=== PATIENT | female | born 1975 | race Caucasian/White ===

== ENCOUNTER → 2017-07-11 | Outpatient (REF) | payer OTHER | LOC: M SFHCPLAZ 19:18 | DX: Z12.4 Encounter for screening for malignant neoplasm of cervix (principal); R87.615 Unsatisfactory cytologic smear of cervix | CPT/HCPCS: 88142 ==

== ENCOUNTER → 2017-07-11 | Outpatient (REF) | payer OTHER ==
[2017-07-11 14:30] LABS: ALBUMIN 3.9 GM/DL (3.2-5.2); ALBUMIN/GLOBULIN RATIO 1.26 (1.00-1.93); ALKALINE PHOSPHATASE 57 U/L (45-117); ALT/SGPT 22 U/L (12-78); ANION GAP 8 MEQ/L (8-16); AST/SGOT 20 U/L (7-37); BILIRUBIN,TOTAL 1.1 MG/DL (0.2-1.0); BLOOD UREA NITROGEN 17 MG/DL (7-18); CALCIUM LEVEL 8.8 MG/DL (8.5-10.1); CARBON DIOXIDE LEVEL 27 MEQ/L (21-32); CHLORIDE LEVEL 106 MEQ/L (98-107); CREATININE FOR GFR 0.81 MG/DL (0.55-1.30); GLOMERULAR FILTRATION RATE > 60.0 (>58); GLUCOSE, FASTING 88 MG/DL (70-100); POTASSIUM SERUM 4.5 MEQ/L (3.5-5.1); SODIUM LEVEL 141 MEQ/L (136-145)
== END ==
LOC: M SFHCPLAZ 11:59
DX: Z09 Encounter for follow-up examination after completed treatment for conditions other than malignant neoplasm (principal)
CPT/HCPCS: 80053

== ENCOUNTER 2017-09-07 08:46 | Emergency (ER) | payer OTHER ==
[2017-09-07] MEDS: NORCO, ANEXSIA 5/325MG TABLET (HYDROcodone/ACETAMINOPHEN) PO (10:11)
== END 2017-09-07 11:15 | disposition home or self-care (01) ==
LOC: M ED 08:46
DX: L03.116 Cellulitis of left lower limb (principal); W19.XXXA Unspecified fall, initial encounter; Y92.099 Unspecified place in other non-institutional residence as the place of occurrence of the external cause; Y93.9 Activity, unspecified; Y99.9 Unspecified external cause status; F41.9 Anxiety disorder, unspecified; F32.9 Major depressive disorder, single episode, unspecified; Z88.0 Allergy status to penicillin
CPT/HCPCS: 73564

== ENCOUNTER → 2017-09-14 | Outpatient (CLI) | payer OTHER ==
[2017-09-14 10:38] LABS: ALKALINE PHOSPHATASE 64 U/L (45-117); BILIRUBIN,DIRECT 0.3 MG/DL (0.0-0.2); BILIRUBIN,TOTAL 0.8 MG/DL (0.2-1.0); LDH LACTATE DEHYDROGENASE 218 U/L (84-246)
[2017-09-14 10:50] LABS: INR 0.93; PROTHROMBIN TIME 12.6 SECONDS (12.1-14.4)
[2017-09-14 11:51] LABS: HEPATITIS B SURFACE ANTIGEN NEGATIVE (NEGATIVE)
[2017-09-14 12:05] LABS: HEPATITIS C VIRUS ABY INDEX 0.3 INDEX (<0.8)
[2017-09-14 12:10] LABS: HEPATITIS B CORE ANTIBODY IGM NEGATIVE (NEGATIVE)
[2017-09-14 12:12] LABS: HEPATITIS A ANTIBODY IGM NEGATIVE (NEGATIVE)
[2017-09-15 08:10] LABS: HAPTOGLOBIN 77 mg/dL (34-200)
== END ==
LOC: M RAD 09:05
DX: R17 Unspecified jaundice (principal)
CPT/HCPCS: 76705

== ENCOUNTER 2017-12-09 08:56 | Emergency (ER) | payer OTHER ==
[2017-12-09] MEDS: DERMABOND TOPICAL SKIN ADHESIVE TOP (09:42)
[2017-12-09] MEDS: ADACEL/BOOSTRIX VACCINE (DIPHTH/PERTUSS/ACELL/TETANUS)0.5ML SYR (90715) IM (09:50)
== END 2017-12-09 10:13 | disposition home or self-care (01) ==
LOC: M ED 08:56
DX: S61.212A Laceration without foreign body of right middle finger without damage to nail, initial encounter (principal); W26.0XXA Contact with knife, initial encounter; Y92.098 Other place in other non-institutional residence as the place of occurrence of the external cause; F41.9 Anxiety disorder, unspecified; F32.9 Major depressive disorder, single episode, unspecified; Z88.0 Allergy status to penicillin; Z79.899 Other long term (current) drug therapy; Z79.2 Long term (current) use of antibiotics
CPT/HCPCS: 90715

== ENCOUNTER 2018-11-13 13:33 | Emergency (ER) | payer OTHER ==
[~2018-11-13] VITALS: Ht 165.1 cm; Wt 100.6 kg
[~2018-11-13 13:33] MED LIST: ATIV1TAB10 PO; CEFD1CAP8; DOXY100C37 PO; ESCI10TA2 PO; IBUP-1022 PO; IBUP800T OR; IBUPOTC PO; PRENTAB8 PO; TRAZ1TAB10 PO
[2018-11-13] MEDS ORDERED: AMOX875T2 PO (15:03)
[2018-11-13 16:19] LABS: BASO % 0.6 % (0.0-1.0); EOS # 0.2 10^3/uL (0.0-0.5); EOS % 2.8 % (0.0-3.0); HEMATOCRIT 39.6 % (36.0-47.0); HEMOGLOBIN 12.7 g/dl (12.0-15.5); LYMPH # 2.2 10^3/uL (1.5-5.0); LYMPH % 32.1 % (24.0-44.0); MEAN CORPUSCULAR HGB CONC 32.1 g/dl (32.0-36.5); MEAN CORPUSCULAR VOLUME 84.1 fl (80.0-96.0); MONO # 0.5 10^3/uL (0.0-0.8); MONO % 8.1 % (0.0-5.0); NEUTROPHILS # 3.8 10^3/uL (1.5-8.5); NEUTROPHILS % 56.1 % (36.0-66.0); PLATELET COUNT, AUTOMATED 286 10^3/uL (150-450); RED BLOOD COUNT 4.71 10^6/uL (4.00-5.40); WHITE BLOOD COUNT 6.7 10^3/uL (4.0-10.0)
[2018-11-13 16:44] LABS: ALBUMIN 3.6 GM/DL (3.2-5.2); ALT/SGPT 20 U/L (12-78); BILIRUBIN,DIRECT 0.2 MG/DL (0.0-0.2); BILIRUBIN,TOTAL 0.8 MG/DL (0.2-1.0); BLOOD UREA NITROGEN 17 MG/DL (7-18); CALCIUM LEVEL 8.9 MG/DL (8.5-10.1); CARBON DIOXIDE LEVEL 25 MEQ/L (21-32); CHLORIDE LEVEL 107 MEQ/L (98-107); GLOMERULAR FILTRATION RATE > 60.0 (>58); GLUCOSE, FASTING 82 MG/DL (70-100); LIPASE 88 U/L (73-393); POTASSIUM SERUM 4.1 MEQ/L (3.5-5.1); SODIUM LEVEL 141 MEQ/L (136-145); TOTAL PROTEIN 6.9 GM/DL (6.4-8.2)
[2018-11-13] MEDS ORDERED: KETOROLAC 30 MG/ML VIAL (J1885) IV ONE (19:15)
[2018-11-13] MEDS ORDERED: ISOVUE-370 76% 100ML VIAL (Q9967) As Ordered ONE (19:23)
--- NOTE | 2018-11-13 20:53 | REPVR ---
PROCEDURE INFORMATION: Exam: CT Abdomen and Pelvis With Contrast Exam date and time: 11/13/2018 7:37 PM Clinical history: 43 years old, female; Abdominal pain; Localized; Left; Additional info: Luq/llq abd pain TECHNIQUE: Imaging protocol: Computed tomography of the abdomen and pelvis with intravenous contrast. Radiation optimization: All CT scans at this facility use at least one of these dose optimization techniques: automated exposure control; mA and/or kV adjustment per patient size (includes targeted exams where dose is matched to clinical indication); or iterative reconstruction. Contrast material: ISOVUE 370; Contrast volume: 100 ml; Contrast route: IV; COMPARISON: LIVER US 09/14/2017 9:13 AM FINDINGS: Liver: The liver attenuation is 62 Hounsfield units and the spleen is 112 Hounsfield units. Gallbladder and bile ducts: Normal. No calcified stones. No ductal dilation. Pancreas: Normal. No ductal dilation. Spleen: Normal. No splenomegaly. Adrenals: Normal. No mass. Kidneys and ureters: Normal. No hydronephrosis. Stomach and bowel: There is colonic diverticulosis without evidence of diverticulitis. Appendix: A normal appendix is seen. Intraperitoneal space: Unremarkable. No free air. No significant fluid collection. Vasculature: Unremarkable. No abdominal aortic aneurysm. Lymph nodes: Unremarkable. No enlarged lymph nodes. Bladder: Unremarkable as visualized. Reproductive: Right ovarian functional cyst measuring 17 x 20 x 17 mm. 2 left ovarian cysts measuring 3.8 x 3.7 x 3.4 cm and 3.2 x 2.9 x 3.2 cm with minimal fluid in the adjacent cul-de-sac which may reflect a leaking cyst and demonstrates a Hounsfield measurement of 18. Bones/joints: Unremarkable. No acute fracture. Soft tissues: Small fat filled left periumbilical hernia. IMPRESSION: 1. Fatty infiltration of the liver. 2. Colonic diverticulosis without diverticulitis. 3. 2 adjacent left ovarian cysts measuring 3.8 x 3.7 x 3.4 cm and 3.2 x 2.9 x 3.2 cm. There is minimal adjacent free fluid in the cul-de-sac which may reflect a leaking cyst. 4. Peripherally enhancing functional cyst of the right ovary measuring 17 x 17 x 20 mm. Electronically signed by: Randy Mills On 11/13/2018 20:52:58 PM
[2018-11-13] MEDS ORDERED: NAPR-837 PO (21:33)
[2018-11-13 21:46] VITALS: BP 115/57
== END 2018-11-13 21:48 | disposition home or self-care (01) ==
LOC: M ED 13:33
DX: N83.209 Unspecified ovarian cyst, unspecified side (principal); F33.9 Major depressive disorder, recurrent, unspecified; F41.9 Anxiety disorder, unspecified; Z79.899 Other long term (current) drug therapy
CPT/HCPCS: 74177; 80048; 80076; 81001; 83690; 85025; 96374; 99284; J1885; Q9967

== ENCOUNTER → 2019-04-26 | Outpatient (CLI) | payer OTHER ==
[~2019-04-26] MED LIST changes: +AMOX875T2 PO; +NAPR-837 PO
[2019-04-26 13:11] LABS: HEMATOCRIT 38.4 % (36.0-47.0); HEMOGLOBIN 11.8 g/dl (12.0-15.5); MEAN CORPUSCULAR HEMOGLOBIN 25.3 pg (27.0-33.0); MEAN CORPUSCULAR HGB CONC 30.7 g/dl (32.0-36.5); MEAN CORPUSCULAR VOLUME 82.2 fl (80.0-96.0); PLATELET COUNT, AUTOMATED 288 10^3/uL (150-450); RED BLOOD COUNT 4.67 10^6/uL (4.00-5.40); WHITE BLOOD COUNT 6.6 10^3/uL (4.0-10.0)
[2019-04-26 13:49] LABS: ALBUMIN 3.6 GM/DL (3.2-5.2); ALT/SGPT 32 U/L (12-78); BILIRUBIN,TOTAL 0.7 MG/DL (0.2-1.0); BLOOD UREA NITROGEN 14 MG/DL (7-18); CALCIUM LEVEL 8.6 MG/DL (8.5-10.1); CARBON DIOXIDE LEVEL 27 MEQ/L (21-32); CHLORIDE LEVEL 107 MEQ/L (98-107); CHOLESTEROL LEVEL 138 MG/DL (<200); CREATININE FOR GFR 0.84 MG/DL (0.55-1.30); GLOMERULAR FILTRATION RATE > 60.0 (>58); GLUCOSE, FASTING 85 MG/DL (70-100); HDL CHOLESTEROL 100 MG/DL (>40); LDL CHOLESTEROL 31 MG/DL (<100); NON-HDL-C 38 MG/DL; SODIUM LEVEL 138 MEQ/L (136-145); TOTAL PROTEIN 6.6 GM/DL (6.4-8.2); TRIGLYCERIDES LEVEL 34 MG/DL (<150)
[2019-04-26 14:00] LABS: HEMOGLOBIN A1c 5.3 %
== END ==
LOC: M WUC 10:15
PROVIDERS: ATTEND Hospitalist
DX: Z00.00 Encounter for general adult medical examination without abnormal findings (principal); Z13.1 Encounter for screening for diabetes mellitus; Z71.89 Other specified counseling

== ENCOUNTER → 2019-06-25 | Outpatient (REF) | payer OTHER | LOC: M SFHCPLAZ 15:12 | PROVIDERS: ATTEND Obstetrics & Gynecology | DX: Z01.419 Encounter for gynecological examination (general) (routine) without abnormal findings (principal) ==

== ENCOUNTER → 2019-07-24 | Outpatient (CLI) | payer OTHER ==
--- NOTE | 2019-07-24 17:51 | REP ---
Clinical: Sprain. Technique: AP, lateral, bilateral oblique views of the left foot. Findings: Generalized age-related changes are appreciated primarily involving the first toe. No obvious acute fracture or dislocation identified. No subcutaneous emphysema or foreign body. Impression: Generalized degenerative changes. No acute fracture or dislocation. Electronically Signed by Tuan Cote MD 07/24/2019 05:43 P
--- NOTE | 2019-07-24 18:05 | REP ---
Clinical: Left ankle sprain . Technique: AP, lateral, bilateral oblique views left ankle . Findings: No acute fracture or dislocation. Skeletal structures and joint spaces are intact and normal. Ankle mortise appears stable. No subcutaneous emphysema or radiodense foreign body. Impression: Normal age-appropriate left ankle radiograph series. No acute fracture or dislocation. Electronically Signed by Tuan Cote MD 07/24/2019 05:56 P
== END ==
LOC: M WUC 15:06
PROVIDERS: ATTEND Physician Assistant
DX: S93.402A Sprain of unspecified ligament of left ankle, initial encounter (principal); S93.602A Unspecified sprain of left foot, initial encounter; X58.XXXA Exposure to other specified factors, initial encounter; Y92.89 Other specified places as the place of occurrence of the external cause; Y93.9 Activity, unspecified; Y99.9 Unspecified external cause status

== ENCOUNTER 2020-03-02 15:07 | Emergency (ER) | payer OTHER ==
[~2020-03-02] VITALS: Ht 165.1 cm; Wt 104.5 kg
[~2020-03-02 15:07] MED LIST changes: +ESCI10TA16 PO; -ESCI10TA2 PO
[2020-03-02 15:08] VITALS: BP 144/63
[2020-03-02] MEDS ORDERED: FLUO20CA22 PO (15:15)
--- NOTE | 2020-03-02 15:48 | REP ---
INDICATION: swelling COMPARISON: None. TECHNIQUE: AP, lateral, bilateral oblique and sunrise views. FINDINGS: The osseous structures and joint spaces are intact and normal. There is no evidence for acute fracture or dislocation. No joint effusion is appreciated. Surrounding soft tissues are unremarkable. No subcutaneous emphysema or radiodense foreign body. IMPRESSION: No acute fracture or dislocation. <Electronically signed by Tuan Cote > 03/02/20 1541
[2020-03-02] MEDS ORDERED: NAPR-837 PO (16:41)
== END 2020-03-02 17:34 | disposition home or self-care (01) ==
LOC: M ED 15:07
DX: S86.912A Strain of unspecified muscle(s) and tendon(s) at lower leg level, left leg, initial encounter (principal); X58.XXXA Exposure to other specified factors, initial encounter; Y92.099 Unspecified place in other non-institutional residence as the place of occurrence of the external cause; Y93.9 Activity, unspecified; Y99.9 Unspecified external cause status

== ENCOUNTER → 2020-03-05 | Outpatient (CLI) | payer OTHER ==
[~2020-03-05] MED LIST changes: +FLUO20CA22 PO
[2020-03-05 16:59] LABS: C REACTIVE PROTEIN QUANTITATIV 0.43 MG/DL (0.00-0.30); RHEUMATOID FACTOR QUANT < 10.0 IU/ML (<15.0); URIC ACID 2.9 MG/DL (2.6-6.0)
[2020-03-07 16:09] LABS: ANTINUCLEAR ANTIBODIES DIRECT Negative (Negative); Lyme Disease IgG/IgM Antibodie <0.91 ISR (0.00-0.90); Lyme Disease IgM Ab Quantitati <0.80 index (0.00-0.79)
== END ==
LOC: M WUC 11:23
PROVIDERS: ATTEND Physician Assistant
DX: M17.12 Unilateral primary osteoarthritis, left knee (principal)

== ENCOUNTER → 2020-03-27 | Outpatient (CLI) | payer OTHER ==
[2020-03-27 16:18] LABS: BASO # 0.1 10^3/uL (0.0-0.2); BASO % 1.2 % (0.0-1.0); EOS # 0.2 10^3/uL (0.0-0.5); EOS % 4.4 % (0.0-3.0); HEMATOCRIT 35.8 % (36.0-47.0); HEMOGLOBIN 10.7 g/dl (12.0-15.5); LYMPH # 1.7 10^3/uL (1.5-5.0); LYMPH % 33.3 % (24.0-44.0); MEAN CORPUSCULAR HEMOGLOBIN 22.7 pg (27.0-33.0); MEAN CORPUSCULAR HGB CONC 29.9 g/dl (32.0-36.5); MONO # 0.6 10^3/uL (0.0-0.8); NEUTROPHILS # 2.6 10^3/uL (1.5-8.5); NEUTROPHILS % 49.7 % (36.0-66.0); PLATELET COUNT, AUTOMATED 318 10^3/uL (150-450); RED BLOOD COUNT 4.71 10^6/uL (4.00-5.40); WHITE BLOOD COUNT 5.2 10^3/uL (4.0-10.0)
[2020-03-27 16:53] LABS: ALBUMIN 3.6 GM/DL (3.2-5.2); ALT/SGPT 32 U/L (12-78); BLOOD UREA NITROGEN 18 MG/DL (7-18); CALCIUM LEVEL 8.9 MG/DL (8.5-10.1); CARBON DIOXIDE LEVEL 25 MEQ/L (21-32); CHLORIDE LEVEL 108 MEQ/L (98-107); CHOLESTEROL LEVEL 125 MG/DL (<200); CHOLESTEROL RISK RATIO 1.329 (<5); CREATININE FOR GFR 0.77 MG/DL (0.55-1.30); GLOMERULAR FILTRATION RATE > 60.0 (>58); GLUCOSE, FASTING 93 MG/DL (70-100); HDL CHOLESTEROL 94 MG/DL (>40); LDL CHOLESTEROL 27 MG/DL (<100); NON-HDL-C 31 MG/DL; POTASSIUM SERUM 4.2 MEQ/L (3.5-5.1); SODIUM LEVEL 142 MEQ/L (136-145); TOTAL PROTEIN 6.4 GM/DL (6.4-8.2); TRIGLYCERIDES LEVEL 22 MG/DL (<150)
[2020-03-27 18:44] LABS: HEMOGLOBIN A1c 5.7 %
== END ==
LOC: M WUC 14:20
PROVIDERS: ATTEND Internal Medicine
DX: Z13.1 Encounter for screening for diabetes mellitus (principal); Z71.89 Other specified counseling

== ENCOUNTER 2020-05-11 13:56 | Emergency (ER) | payer OTHER ==
[~2020-05-11] VITALS: Ht 165.1 cm; Wt 108.6 kg
[2020-05-11] MEDS ORDERED: TIZA4TAB4 (14:10)
[2020-05-11] MEDS ORDERED: TRAM50TA2 (14:10)
[2020-05-11] MEDS ORDERED: OXYMETAZOLINE 0.05% NASAL SPRAY (AFRIN) ONE (15:15)
[2020-05-11] MEDS ORDERED: MECLIZINE 25 MG TABLET PO ONE (15:15)
[2020-05-11 16:11] LABS: BASO % 0.9 % (0.0-1.0); EOS # 0.2 10^3/uL (0.0-0.5); EOS % 4.3 % (0.0-3.0); HEMATOCRIT 37.2 % (36.0-47.0); HEMOGLOBIN 11.1 g/dl (12.0-15.5); LYMPH # 1.3 10^3/uL (1.5-5.0); LYMPH % 29.1 % (24.0-44.0); MEAN CORPUSCULAR HEMOGLOBIN 22.4 pg (27.0-33.0); MEAN CORPUSCULAR HGB CONC 29.8 g/dl (32.0-36.5); MEAN CORPUSCULAR VOLUME 75.2 fl (80.0-96.0); MONO # 0.6 10^3/uL (0.0-0.8); MONO % 12.3 % (2.0-8.0); NEUTROPHILS # 2.4 10^3/uL (1.5-8.5); PLATELET COUNT, AUTOMATED 314 10^3/uL (150-450); RED BLOOD COUNT 4.95 10^6/uL (4.00-5.40); WHITE BLOOD COUNT 4.5 10^3/uL (4.0-10.0)
[2020-05-11] MEDS ORDERED: KETOROLAC 30 MG/ML 1ML VIAL As Ordered ONE (17:18)
[2020-05-11] MEDS ORDERED: KETOROLAC 30 MG/ML 1ML VIAL IV ONE (17:20)
--- NOTE | 2020-05-11 17:42 | REPVR ---
PROCEDURE INFORMATION: Exam: CT Head Without Contrast Exam date and time: 05/11/2020 5:06 PM Age: 44 years old Clinical indication: Pain; Headache; Other: Severe; Additional info: Severe headache TECHNIQUE: Imaging protocol: Computed tomography of the head without contrast. Radiation optimization: All CT scans at this facility use at least one of these dose optimization techniques: automated exposure control; mA and/or kV adjustment per patient size (includes targeted exams where dose is matched to clinical indication); or iterative reconstruction. COMPARISON: CT Head without contrast 05/31/2017 10:29 AM FINDINGS: Brain: Normal. No hemorrhage. Unremarkable white matter. No mass effect. Cerebral ventricles: No ventriculomegaly. Bones/joints: Unremarkable. No acute fracture. Paranasal sinuses: Incompletely seen ethmoidal air cell disease. Mastoid air cells: Visualized mastoid air cells are well aerated. Soft tissues: Unremarkable. IMPRESSION: No acute intracranial abnormality. Electronically signed by: Curtis Suero On 05/11/2020 17:42:58 PM
[2020-05-11] MEDS ORDERED: AFRI0.058 (18:25)
[2020-05-11] MEDS ORDERED: MECL1TAB31 PO (18:25)
[2020-05-11 18:36] VITALS: BP 135/76
--- NOTE | 2020-05-12 17:30 | ECGEPIP ---
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
== END 2020-05-11 18:50 | disposition home or self-care (01) ==
LOC: M ED 13:56
DX: H65.03 Acute serous otitis media, bilateral (principal); R42 Dizziness and giddiness; J30.89 Other allergic rhinitis; F33.9 Major depressive disorder, recurrent, unspecified; F41.9 Anxiety disorder, unspecified; Z79.899 Other long term (current) drug therapy
CPT/HCPCS: 70450; 80047; 85025; 93005; 96374; 99285; J1885

== ENCOUNTER → 2020-05-21 | Outpatient (RCR) | payer OTHER ==
[~2020-05-21] MED LIST changes: +AFRI0.058; +MECL1TAB31 PO; +TIZA4TAB4; +TRAM50TA2
== END ==
LOC: M PT 08:42
PROVIDERS: ATTEND Physician Assistant
DX: S83.412A Sprain of medial collateral ligament of left knee, initial encounter (principal); S83.512A Sprain of anterior cruciate ligament of left knee, initial encounter; M17.12 Unilateral primary osteoarthritis, left knee; M25.462 Effusion, left knee

== ENCOUNTER 2020-06-05 09:45 | Outpatient (RCR) | payer OTHER ==
[~2020-06-05 09:45] MED LIST changes: +CLAR10CA3 PO
[2020-06-14] MEDS ORDERED: OXYC1TAB23 PO (09:35)
[2020-06-14] MEDS ORDERED: IBUP-1022 PO (10:28)
== END 2020-06-20 ==
LOC: M PT 09:45
PROVIDERS: ATTEND Physician Assistant
DX: S83.512D Sprain of anterior cruciate ligament of left knee, subsequent encounter (principal); S83.412D Sprain of medial collateral ligament of left knee, subsequent encounter; M17.12 Unilateral primary osteoarthritis, left knee; M25.462 Effusion, left knee

== ENCOUNTER → 2020-06-08 | Outpatient (CLI) | payer OTHER | LOC: M LABSMTC 08:19 | PROVIDERS: ATTEND Anesthesiology | DX: Z01.812 Encounter for preprocedural laboratory examination (principal); Z20.822 Contact with and (suspected) exposure to COVID-19 ==

== ENCOUNTER 2020-06-13 06:24 | Day surgery (SDC) | payer OTHER ==
[~2020-06-13] VITALS: Ht 165.1 cm; Wt 110.7 kg
[~2020-06-13 06:24] MED LIST changes: +LR 1,000 ML IV ONE; +ceFAZolin SOD 2 GM in IV 1 EA IV ONE
[2020-06-13 06:51] LABS: HEMATOCRIT 34.5 % (36.0-47.0); MEAN CORPUSCULAR HEMOGLOBIN 21.6 pg (27.0-33.0); MEAN CORPUSCULAR VOLUME 74.5 fl (80.0-96.0); PLATELET COUNT, AUTOMATED 316 10^3/uL (150-450); RED BLOOD COUNT 4.63 10^6/uL (4.00-5.40); WHITE BLOOD COUNT 4.6 10^3/uL (4.0-10.0)
[2020-06-13] MEDS ORDERED: fentaNYL 250 MCG/5 ML INJECTION (J3010) As Ordered ONE (06:51)
[2020-06-13] MEDS ORDERED: MIDAZOLAM INJ 2MG/2ML VIAL (J2250 PER 1MG) As Ordered ONE (06:52)
[2020-06-13] MEDS ORDERED: LIDOCAINE 2% 100MG/5ML SDV (FOR ANES.) As Ordered ONE (06:53)
[2020-06-13] MEDS ORDERED: ROCURONIUM BROMIDE 50 MG/5 ML VIAL As Ordered ONE ×3 (06:53→08:42)
[2020-06-13] MEDS ORDERED: dexameTHASONE 4 MG/ML 1ML VIAL (J1100 PER 1MG) As Ordered ONE (06:53)
[2020-06-13] MEDS ORDERED: ONDANSETRON 4MG/2ML VIAL As Ordered ONE (06:54)
[2020-06-13] MEDS ORDERED: propofoL 200 MG/20 ML VIAL As Ordered ONE (07:00)
[2020-06-13] MEDS ORDERED: BUPIVACAINE HCL 0.25% 10ML VIAL As Ordered ONE (07:20)
[2020-06-13] MEDS ORDERED: ATROPINE SULF 0.4 MG/ML 1ML VIAL (J0461) As Ordered ONE (08:27)
[2020-06-13] MEDS ORDERED: GLYCOPYRROLATE INJ 0.2 MG/ML 2 ML VIAL As Ordered ONE (08:56)
[2020-06-13] MEDS ORDERED: SUGAMMADEX SODIUM 500 MG/5 ML VIAL (BRIDION) As Ordered ONE (09:05)
[2020-06-13] MEDS ORDERED: KETOROLAC 60MG 2ML VIAL As Ordered ONE ×2 (09:22→09:24)
[2020-06-13] MEDS ORDERED: ALBUTEROL 6.7GM INHALER **FOR ANES. CART/OMNICELL ONLY As Ordered ONE (09:37)
[2020-06-13] MEDS ORDERED: fentaNYL 100 MCG/2 ML INJECTION (J3010) As Ordered ONE (09:49)
[2020-06-13] MEDS: MEPERIDINE INJ 25 MG/ML VIAL (J2175) IV PRN ×2 (09:50→09:55)
[2020-06-13] MEDS ORDERED: MEPERIDINE INJ 25 MG/ML VIAL (J2175) As Ordered ONE (09:50)
[2020-06-13] MEDS: fentaNYL 100 MCG/2 ML INJECTION (J3010) IV PRN ×4 (09:55→10:57)
[2020-06-13] MEDS ORDERED: PERCOCET 5MG/325MG TAB PO PRN ×2 (10:05→10:10)
[2020-06-13] MEDS ORDERED: MORPHINE 4 MG/ML 1ML VIAL/SYRINGE (J2270) IV PRN (10:05)
[2020-06-13] MEDS: LR 1,000 ML IV SCH ×2 (10:05→15:01)
[2020-06-13] MEDS ORDERED: METOCLOPRAMIDE INJ 10MG/2ML VIAL (J2765 PER 1) IV PRN (10:10)
[2020-06-13] MEDS ORDERED: LR 1,000 ML IV SCH (10:10)
[2020-06-13] MEDS ORDERED: KETOROLAC 30 MG/ML 1ML VIAL IV PRN (10:10)
[2020-06-13] MEDS ORDERED: ONDANSETRON 4MG/2ML VIAL IV PRN ×2 (10:10)
--- NOTE | 2020-06-13 11:40 | ROOPDOC ---
[facility] Report Of Operation Report of Operation DATE OF PROCEDURE: 06/13/20 OPERATIVE REPORT: Preoperative diagnosis: Menorrhagia. Postoperative diagnosis: Same. Procedure: Robotic-assisted laparoscopic hysterectomy, bilateral salpingectomy, cystoscopy. Surgeon: Rimma Negron M.D. Data Quality Consultant: Milena Pappas NP EBL: 100 mL's. Urine output: 100 mL's. Operative summary: Patient was taken to the operating room where general endotracheal anesthesia was induced. She was prepped and draped in sterile fashion in the dorsal lithotomy position. A Monique Catheter was placed. A V care uterine manipulator was placed. A Periumbilical incision was made with a scalpel. . A Veress needle was placed through this incision. Intra-abdominal loc ation of Veress needle was assessed with saline filled syringe. A pneumoperitoneum was created. The Veress needle was removed. An 8 mm trocar using the [employer] was inserted through this incision. Three 8 mm suprapubic ports were placed under direct visualization The patient was placed in Trendelenburg position. The [employer] Alen surgical robot was docked to the ports. Using the fenestrated bipolar instrument and vessel sealer, the utero-ovarian ligaments were coagulated and incised. The round ligaments were coagulated and incised. The fallopian tubes were excised from their broad ligament attachments. The anterior and posterior leaves of the broad ligament were . A Bladder flap was created. The uterine vessels were coagulated and incised using monopolar Endo Stefany. A colpotomy was created in the upper vagina at the level of the V care Cup. The specimen including the uterus, cervix, and fallopian tubes was removed through the vagina. The vaginal cuff was closed with #1 V lock suture in running fashion. Cystoscopy was performed using a 70 cystoscope. Bilateral ureteral jets were identified. No evidence of injury to the bladder. The cystoscope was removed. All instruments removed. The skin was closed with 4-0 Monocryl subcuticular sutures. Milena Pappas NP assisted with all aspects of the procedure. She helped position the patient. She helped insert the ports and manipulate the uterus. She removed the specimen. RIMMA NEGRON MD Jun 13, 2020 11:40
[2020-06-13 12:04] VITALS: BP 120/70
[2020-06-13 12:44] VITALS: BP 120/71
[2020-06-13 14:45] VITALS: BP 120/70
[2020-06-13] MEDS: PERCOCET 5MG/325MG TAB PO PRN ×2 (15:01→18:52)
[2020-06-13] MEDS: DOCUSATE SODIUM 100MG CAPSULE PO SCH (20:14)
[2020-06-13 22:00] VITALS: BP 108/66
[2020-06-13 22:41] VITALS: O2SAT 96
[2020-06-14 02:00] VITALS: BP 116/61
[2020-06-14 06:00] VITALS: BP 116/63
[2020-06-14] MEDS: DOCUSATE SODIUM 100MG CAPSULE PO SCH (08:36)
[2020-06-14] MEDS ORDERED: OXYC1TAB23 PO (09:35)
[2020-06-14] MEDS ORDERED: IBUP-1022 PO (10:28)
== END 2020-06-14 11:30 | disposition home or self-care (01) ==
LOC: M SDC 06:24 → M MS5PR 11:40 → M SDC 06-14 11:30
PROVIDERS: ATTEND Specialist
DX: N80.0 Endometriosis of uterus (principal); N72 Inflammatory disease of cervix uteri; J32.9 Chronic sinusitis, unspecified; F32.9 Major depressive disorder, single episode, unspecified; Z91.5 Personal history of self-harm; F41.9 Anxiety disorder, unspecified; F43.20 Adjustment disorder, unspecified; E66.9 Obesity, unspecified; Z68.41 Body mass index [BMI] 40.0-44.9, adult; Z79.899 Other long term (current) drug therapy
CPT/HCPCS: 36415; 58571; 85027; 86850; 86900; 86901; 88307; J0461; J0690; J1100; J1885; J2175; J2250; J2405; J2765; J3010; S2900

== ENCOUNTER 2020-06-18 22:06 | Emergency (ER) | payer OTHER ==
[~2020-06-18] VITALS: Ht 165.1 cm; Wt 112.8 kg
[~2020-06-18 22:06] MED LIST changes: -LR 1,000 ML IV ONE; +OXYC1TAB23 PO; -ceFAZolin SOD 2 GM in IV 1 EA IV ONE
--- NOTE | 2020-06-19 00:19 | REPVR ---
PROCEDURE INFORMATION: Exam: US Nonobstetric Pelvis; Complete Exam date and time: 06/18/2020 11:53 PM Age: 44 years old Clinical indication: Other: Bleeding S/P hysterectomy; Prior surgery; Surgery date: 3-7 days post-operative; Surgery type: Vaginal hysterectomy; Additional info: Vaginal bleeding S/P hysterectomy TECHNIQUE: Imaging protocol: Transabdominal pelvic nonobstetric ultrasound. Complete exam. Real time ultrasound with image documentation. COMPARISON: CT ABD/PEL W/IV CONTRAST ONLY 11/13/2018 7:36 PM FINDINGS: Uterus/cervix: Uterus is surgically absent Right adnexa: Right ovary measures 4 x 3 x 3.6 cm in size. Right ovarian 2.3 cm simple cyst. Left adnexa: Left ovary measures 2.0 x 2.8 x 2.0 cm in size. No dominant mass or cyst. Intraperitoneal space: No abnormal volume of free fluid within the pelvis. Urinary bladder: Unremarkable. Doppler: Doppler flow is documented in both ovaries. No pelvic hematoma. IMPRESSION: 1. Surgical absence of the uterus. No explanation for vaginal bleeding. 2. Incidental right ovarian cyst 2.3 cm, without evidence of torsion Electronically signed by: Douglas Rosas On 06/19/2020 00:19:31 AM
[2020-06-19 00:29] LABS: BASO % 0.5 % (0.0-1.0); EOS # 0.3 10^3/uL (0.0-0.5); HEMOGLOBIN 9.5 g/dl (12.0-15.5); LYMPH # 1.6 10^3/uL (1.5-5.0); LYMPH % 23.7 % (24.0-44.0); MEAN CORPUSCULAR HEMOGLOBIN 22.1 pg (27.0-33.0); MEAN CORPUSCULAR HGB CONC 29.7 g/dl (32.0-36.5); MEAN CORPUSCULAR VOLUME 74.4 fl (80.0-96.0); MONO # 0.6 10^3/uL (0.0-0.8); MONO % 9.8 % (2.0-8.0); NEUTROPHILS % 61.4 % (36.0-66.0); PLATELET COUNT, AUTOMATED 287 10^3/uL (150-450); WHITE BLOOD COUNT 6.5 10^3/uL (4.0-10.0)
[2020-06-19 00:39] LABS: BLOOD UREA NITROGEN 18 MG/DL (7-18); CARBON DIOXIDE LEVEL 26 MEQ/L (21-32); CHLORIDE LEVEL 107 MEQ/L (98-107); CREATININE FOR GFR 0.67 MG/DL (0.55-1.30); GLOMERULAR FILTRATION RATE > 60.0 (>58); GLUCOSE, FASTING 98 MG/DL (70-100); SODIUM LEVEL 139 MEQ/L (136-145)
[2020-06-19 02:45] VITALS: BP 142/86
== END 2020-06-19 02:46 | disposition home or self-care (01) ==
LOC: M ED 22:06
DX: N83.201 Unspecified ovarian cyst, right side (principal); N99.820 Postprocedural hemorrhage of a genitourinary system organ or structure following a genitourinary system procedure; Z90.711 Acquired absence of uterus with remaining cervical stump; F33.9 Major depressive disorder, recurrent, unspecified; F41.9 Anxiety disorder, unspecified; F43.10 Post-traumatic stress disorder, unspecified; Z79.899 Other long term (current) drug therapy

== ENCOUNTER → 2020-09-30 | Outpatient (REF) | payer OTHER ==
[~2020-09-30] MED LIST changes: +DEXA0.5E2 PO; -DOXY100C37 PO; +DOXY1CAP62 PO; +LIDO2SOL17 PO
== END ==
LOC: CANPREREF → M SFHCPLAZ 11:06
PROVIDERS: ATTEND Family Medicine
DX: D64.9 Anemia, unspecified (principal)

== ENCOUNTER → 2020-09-30 | Outpatient (CLI) | payer OTHER ==
[2020-09-30 14:58] LABS: BASO % 0.8 % (0.0-1.0); EOS # 0.2 10^3/uL (0.0-0.5); EOS % 4.3 % (0.0-3.0); HEMATOCRIT 35.3 % (36.0-47.0); HEMOGLOBIN 10.3 g/dl (12.0-15.5); LYMPH # 1.7 10^3/uL (1.5-5.0); LYMPH % 31.3 % (24.0-44.0); MEAN CORPUSCULAR HEMOGLOBIN 21.3 pg (27.0-33.0); MEAN CORPUSCULAR HGB CONC 29.2 g/dl (32.0-36.5); MEAN CORPUSCULAR VOLUME 73.1 fl (80.0-96.0); MONO # 0.5 10^3/uL (0.0-0.8); MONO % 9.6 % (2.0-8.0); NEUTROPHILS # 2.8 10^3/uL (1.5-8.5); NEUTROPHILS % 53.2 % (36.0-66.0); PLATELET COUNT, AUTOMATED 347 10^3/uL (150-450); RED BLOOD COUNT 4.83 10^6/uL (4.00-5.40); WHITE BLOOD COUNT 5.3 10^3/uL (4.0-10.0)
[2020-09-30 15:24] LABS: PERCENT SATURATION 3.9 % (13.2-45.0)
== END ==
LOC: M WUC 11:34
PROVIDERS: ATTEND Student in an Organized Health Care Education/Training Program
DX: D64.9 Anemia, unspecified (principal)

== ENCOUNTER 2020-10-03 23:37 | Emergency (ER) | payer OTHER ==
[~2020-10-03] VITALS: Ht 165.1 cm; Wt 113.6 kg
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
[2020-10-04 03:45] VITALS: BP 139/90
== END 2020-10-04 04:25 | disposition home or self-care (01) ==
LOC: M ED 23:37
DX: Z04.1 Encounter for examination and observation following transport accident (principal); F33.9 Major depressive disorder, recurrent, unspecified; F41.1 Generalized anxiety disorder; F43.20 Adjustment disorder, unspecified; M17.12 Unilateral primary osteoarthritis, left knee; Z79.899 Other long term (current) drug therapy

== ENCOUNTER → 2020-10-22 | Outpatient (CLI) | payer OTHER ==
[2020-10-22 17:04] LABS: HEMATOCRIT 34.7 % (36.0-47.0); HEMOGLOBIN 10.2 g/dl (12.0-15.5); MEAN CORPUSCULAR HEMOGLOBIN 21.7 pg (27.0-33.0); MEAN CORPUSCULAR HGB CONC 29.4 g/dl (32.0-36.5); PLATELET COUNT, AUTOMATED 311 10^3/uL (150-450); RED BLOOD COUNT 4.69 10^6/uL (4.00-5.40); WHITE BLOOD COUNT 5.6 10^3/uL (4.0-10.0)
[2020-10-22 17:21] LABS: FERRITIN 9 NG/ML (8-252); IRON (FE) 19 UG/DL (50-170)
== END ==
LOC: M WUC 14:49
PROVIDERS: ATTEND Student in an Organized Health Care Education/Training Program
DX: D50.9 Iron deficiency anemia, unspecified (principal)

== ENCOUNTER 2020-12-17 12:16 | Emergency (ER) | payer OTHER ==
[~2020-12-17] VITALS: Ht 165.1 cm; Wt 110.7 kg
[~2020-12-17 12:16] MED LIST changes: +DOXY-443 PO; -DOXY1CAP62 PO
[2020-12-17] MEDS ORDERED: IBUP-1022 PO (12:24)
[2020-12-17] MEDS ORDERED: FERR325T19 (12:24)
[2020-12-17] MEDS ORDERED: FLUO20CA22 (12:24)
--- OUTSIDE RECORDS SUMMARY | 2020-12-17 12:25 | CCD ---
Author Author [facility] Organization [facility] Address Unknown Phone Unavailable Care Team Providers Care Pantry Goods Worker Name Role Phone Aden Yolis Unavailable PROBLEMS Type Condition ICD9-CM Code [id number] Code Onset Dates Condition S tatus W/U Status Risk SNOMED Code Notes Problem Constipation, unspecified constipation type K59.00 Active confirmed 93809801 Problem Seasonal allergies J30.2 Active confirmed 4 87495030 Problem Menometrorrhagia N92.1 Active confirmed 314 356058 Problem Other depression F32.89 Active confirmed 354 99801 Problem Obesity (BMI 30-39.9) E66.9 Active confirmed 983940946 Problem Hyperbilirubinemia E80.6 Active confirmed 1 4376068 Problem Iron deficiency anemia, unspecified iron deficiency an emia type D50.9 Active confirmed 16057622 Problem Severe anxiety F41.9 Active confirmed 46335 007 Problem Body mass index [BMI]40.0-44.9, adult Z68.41 Ac tive confirmed 614045649 Problem Microcytic anemia D50.9 Active confirmed 23 0504847 Problem Morbid (severe) obesity due to excess calories E66 .01 Active confirmed 74640886404516 Problem Primary osteoarthritis of left knee M17.12 Acti ve confirmed [id number] ALLERGIES No Known Allergies ENCOUNTERS from 1975 to 2020-10-02 Encounter Location Date Provider Diagnosis [facility] [place] Resident [address] [phone] [place] [address] 11 Sep, 2020 Yolis Samaniego Iron deficiency anem ia, unspecified iron deficiency anemia type D50.9 IMMUNIZATIONS Vaccine Route Administration Date Status HPV9 0.5mL Gardasil 9 IM Intramuscular June 25, 2019 Administe red SOCIAL HISTORY Tobacco Use: Social History Observation Description Date Details (start date - stop date) Never Smoker Sex Assigned At : Social History Observation Description Sex Assigned At Unknown Education: Question Answer Notes Level of Education: High School Language: Question Answer Notes Languages spoken: Yoruba Sabianist: Question Answer Notes Sabianist No spiritism beliefs that would impact health care. Alcohol Screening: Question Answer Notes Did you have a drink containing alcohol in the past year? No Points 0 Interpretation Negative Tobacco Use: Question Answer Notes Are you a: never smoker never smoker REASON FOR REFERRAL No Information VITAL SIGNS No information MEDICATIONS Medication SIG (Take, Route, Frequency, Duration) Notes Start Da te End Date Status Afrin Nasal [place] 0.05 % 2 sprays in each nostril as needed Nasally Twice a day for 3 day(s) Not-Taking traMADol HCl 50 MG 1 tablet as needed Orally Once a day for 30 D ays Mar, Not-Taking PROzac 20 MG 1 capsule Orally Once a day for 30 day(s) Not-Taking Ferrous Sulfate 325 (65 Fe) MG 1 tablet Orally Once a day for 30 day(s) Sep, Active Flonase Allergy Relief 50 MCG/ACT 1 spray in each nost ril Nasally Once a day for 30 day(s) Active Claritin 10 MG 1 tablet Orally Once a day for 30 day(s) Feb, Active PROCEDURES No Information RESULTS No Results REASON FOR VISIT No Information MEDICAL (GENERAL) HISTORY Type Description Date Medical History Depression with Suicide Attempt 05/30/2017 -06/03/2017 Medical History Anxiety Medical History Adjustement Disorder Medical History Left knee osteoarthritis Medical History Chronic sinusitis, R ear hearing loss (7 5%) Surgical History tubal ligation Surgical History D&C Surgical History Hysterectomy- RA-BS 2020 Hospitalization History Child x 3 Goals Section No Information Health Concerns No Information MEDICAL EQUIPMENT No Information MENTAL STATUS No Information FUNCTIONAL STATUS No Information ASSESSMENTS Encounter Date Diagnosis Assessment Notes Treatment Notes Treatm ent Clinical Notes Sep, Iron deficiency anemia, unsp ecified iron deficiency anemia type (ICD-10 - D50.9) iron labs shows iron def anemia. patient states she doesnt eat red meat, mostly chicken. I have talked to her about iron rich vegetables such as spinach. Will start her on iron pills. Will need a follow up labs at next visit. Will also need colonscopy PLAN OF TREATMENT Medication Medication Name Sig Start Date Stop Date Ferrous Sulfate 325 (65 Fe) MG 1 tablet Orally Once a day fo r 30 day(s) Sep, Treatment Notes Assessment Notes Clinical Notes Iron deficiency anemia, unspecified iron deficiency anemia t ype iron labs shows iron def anemia. patient states she doesnt eat red meat, mostly chicken. I have talked to her about iron rich vegetables such as spinach. Will start her on iron pills. Will need a follow up labs at next visit. Will also need colonscopy Insurance Providers Payer Name Payer Address Payer Phone Insured Name Patient Relati onship to Insured Coverage Start Date Coverage End Date [facility] [address] [facility] [phone] VERENA ALAMO self
--- OUTSIDE RECORDS SUMMARY | 2020-12-17 12:25 | CCD ---
Author Author [facility] Organization [facility] Address Unknown Phone Unavailable Care Team Providers Care Screen Roller Name Role Phone AdenMauriceluis Unavailable PROBLEMS Type Condition ICD9-CM Code [id number] Code Onset Dates Condition S tatus W/U Status Risk SNOMED Code Notes Problem Hyperbilirubinemia E80.6 Active confirmed 1 9936000 Problem Other depression F32.89 Active confirmed 354 93483 Problem Menometrorrhagia N92.1 Active confirmed 314 610452 Problem Morbid (severe) obesity due to excess calories E66 .01 Active confirmed 98979768648795 Problem Body mass index [BMI]40.0-44.9, adult Z68.41 Ac tive confirmed 204009155 Problem Major depressive disorder, r emission status unspecified, unspecified whether recurrent F32.9 Active confirmed 629688297 Problem Seasonal allergies J30.2 Active confirmed 4 47327887 Problem Anxiety F41.9 Active confirmed 61768221 Problem Constipation, unspecified constipation type K59.00 Active confirmed 31726871 Problem Microcytic anemia D50.9 Active confirmed 23 2153757 Problem Primary osteoarthritis of left knee M17.12 Acti ve confirmed 672640323253603 Problem Obesity (BMI 30-39.9) E66.9 Active confirmed 759456548 Problem Iron deficiency anemia, unspecified iron deficiency an emia type D50.9 Active confirmed 28007682 ALLERGIES No Known Allergies ENCOUNTERS from 1975 to 2020-11-07 Encounter Location Date Provider Diagnosis [address] [phone] [place] [address] 16 Oct, 2020 Yolis Samaniego Major depressive disorder, r emission status unspecified, unspecified whether recurrent F32.9 IMMUNIZATIONS Vaccine Route Administration Date Status HPV9 0.5mL Gardasil 9 IM Intramuscular June 25, 2019 Administe red SOCIAL HISTORY Tobacco Use: Social History Observation Description Date Details (start date - stop date) Never Smoker Sex Assigned At : Social History Observation Description Sex Assigned At Unknown Education: Question Answer Notes Level of Education: High School Language: Question Answer Notes Languages spoken: Czech Pentecostal: Question Answer Notes Pentecostal No restorationism beliefs that would impact health care. Alcohol Screening: Question Answer Notes Did you have a drink containing alcohol in the past year? No Points 0 Interpretation Negative Tobacco Use: Question Answer Notes Are you a: never smoker never smoker REASON FOR REFERRAL No Information VITAL SIGNS No information MEDICATIONS Medication SIG (Take, Route, Frequency, Duration) Notes Start Da te End Date Status traMADol HCl 50 MG 1 tablet as needed Orally Once a day for 30 D ays Mar, Not-Taking FeroSul 325 (65 Fe) MG TAKE ONE TABLET BY MOUTH EVERY DAY for 30 Active hydrOXYzine HCl 10 MG as directed Orally Oct, Active FLUoxetine HCl 20 MG 1 capsule Orally Once a day for 30 day(s) Oct, Active Claritin 10 MG 1 tablet Orally Once a day for 30 day(s) Feb, Active PROzac 20 MG 1 capsule Orally Once a day for 30 day(s) Not-Taking Flonase Allergy Relief 50 MCG/ACT 1 spray in each nost ril Nasally Once a day for 30 day(s) Active Afrin Nasal [place] 0.05 % 2 sprays in each nostril as needed Nasally Twice a day for 3 day(s) Not-Taking PROCEDURES No Information RESULTS No Results REASON FOR VISIT FLUoxetine HCl 20 MG Capsule MEDICAL (GENERAL) HISTORY Type Description Date Medical [...] Notes Treatment Notes Treatm ent Clinical Notes Oct, Major depressive disorder, r emission status unspecified, unspecified whether recurrent (ICD-10 - F32.9) PLAN OF TREATMENT Medication Medication Name Sig Start Date Stop Date FeroSul 325 (65 Fe) MG TAKE ONE TABLET BY MOUTH EVERY DAY for 30 hydrOXYzine HCl 10 MG as directed Orally Oct, FLUoxetine HCl 20 MG 1 capsule Orally Once a day for 30 day(s) 5 Oct, 2020 Insurance Providers Payer Name Payer Address Payer Phone Insured Name Patient Relati onship to Insured Coverage Start Date Coverage End Date [facility] [address] [place] [phone] VERENA ALAMO self
--- OUTSIDE RECORDS SUMMARY | 2020-12-17 12:25 | CCD ---
Author Author [facility] Organization [facility] Address Unknown Phone Unavailable Care Team Providers Care Conservation Science Officer Name Role Phone Aden Yolis Unavailable PROBLEMS Type Condition ICD9-CM Code FDU81-LE Code Onset Dates Condition S tatus W/U Status Risk SNOMED Code Notes Problem Constipation, unspecified constipation type K59.00 Active confirmed 00921074 Problem Seasonal allergies J30.2 Active confirmed 4 63305828 Problem Menometrorrhagia N92.1 Active confirmed 314 638991 Problem Other depression F32.89 Active confirmed 354 86816 Problem Obesity (BMI 30-39.9) E66.9 Active confirmed 404075422 Problem Hyperbilirubinemia E80.6 Active confirmed 1 3522104 Problem Iron deficiency anemia, unspecified iron deficiency an emia type D50.9 Active confirmed 64674224 Problem Severe anxiety F41.9 Active confirmed 95333 007 Problem Body mass index [BMI]40.0-44.9, adult Z68.41 Ac tive confirmed 415756533 Problem Microcytic anemia D50.9 Active confirmed 23 1162254 Problem Morbid (severe) obesity due to excess calories E66 .01 Active confirmed 09299430940528 Problem Primary osteoarthritis of left knee M17.12 Acti ve confirmed [id number] ALLERGIES No Known Allergies ENCOUNTERS from 1975 to 2020-10-16 Encounter Location Date Provider Diagnosis [facility] [place] Resident [address] [phone] [place] [address] Sep, Yolis Samaniego Iron deficiency anem ia, unspecified [...] School Language: Question Answer Notes Languages spoken: Kyrgyz Confucianism: Question Answer Notes Confucianism No mormonism beliefs that would impact health care. Alcohol [...] Da te End Date Status Afrin Nasal [place] 0.05 % 2 sprays in each nostril [...] iron deficiency anemia type (ICD-10 - D50.9) started po iron. will repeat labs in 1 month from prior visit on 10/01/20. Will inform patient to get it done 10/31. PLAN OF TREATMENT Medication Medication Name Sig Start Date Stop Date Ferrous Sulfate 325 (65 Fe) MG 1 tablet Orally Once a day fo r 30 day(s) Sep, Treatment Notes Assessment Notes Clinical Notes Iron deficiency anemia, unspecified iron deficiency anemia t ype started po iron. will repeat labs in 1 month from prior visit on 10/01/20. Will inform patient to get it done 10/31. Treatment Notes Test Name Order Date CBC - Complete Blood Count 2020-10-13 IRON (FE) 2020-10-13 FERRITIN 2020-10-13 TRANSFERRIN 2020-10-13 Next Appt Details Provider Name:Yolis Samaniego, 2020-11-05 0 9:00:00 AM, [address], , [place], [address], Insurance Providers Payer Name Payer Address Payer Phone Insured Name Patient Relati onship to Insured Coverage Start Date Coverage End Date [facility] [address] [facility] [id number] VERENA ALAMO self
--- OUTSIDE RECORDS SUMMARY | 2020-12-17 12:25 | CCD ---
Author Author [facility] Organization [facility] Address Unknown Phone Unavailable Care Team Providers Care Receptionist Scheduler Name Role Phone AdenMauriceluis Unavailable PROBLEMS Type Condition ICD9-CM Code [id number] Code Onset Dates Condition S tatus W/U Status Risk SNOMED Code Notes Problem Constipation, unspecified constipation type K59.00 Active confirmed 31678129 Problem Seasonal allergies J30.2 Active confirmed 4 65176523 Problem Menometrorrhagia N92.1 Active confirmed 314 087908 Problem Other depression F32.89 Active confirmed 354 91613 Problem Obesity (BMI 30-39.9) E66.9 Active confirmed 403052096 Problem Hyperbilirubinemia E80.6 Active confirmed 1 2611737 Problem Iron deficiency anemia, unspecified iron deficiency an emia type D50.9 Active confirmed 68261846 Problem Severe anxiety F41.9 Active confirmed 76369 007 Problem Body mass index [BMI]40.0-44.9, adult Z68.41 Ac tive confirmed 615335335 Problem Microcytic anemia D50.9 Active confirmed 23 3223100 Problem Morbid (severe) obesity due to excess calories E66 .01 Active confirmed 89767622628290 Problem Primary osteoarthritis of left knee M17.12 Acti ve confirmed [id number] ALLERGIES No Known Allergies ENCOUNTERS from 1975 to 2020-10-01 Encounter Location Date Provider Diagnosis [facility] Resident [address] [phone] [place] [address] 10 Sep, 2020 Yolis Samaniego Anemia, unspecified type D64.9 and Obesity (BMI 30- 39.9) E66.9 IMMUNIZATIONS Vaccine Route Administration Date Status HPV9 0.5mL Gardasil 9 IM Intramuscular June 25, 2019 Administe red SOCIAL HISTORY Tobacco Use: Social History Observation Description Date Details (start date - stop date) Never Smoker Sex Assigned At : Social History Observation Description Sex Assigned At Unknown Education: Question Answer Notes Level of Education: High School Language: Question Answer Notes Languages spoken: Grenadian Advent: Question Answer Notes Advent No yazdanism beliefs that would impact health care. Alcohol Screening: Question Answer Notes Did you have a drink containing alcohol in the past year? No Points 0 Interpretation Negative Tobacco Use: Question Answer Notes Are you a: never smoker never smoker REASON FOR REFERRAL No Information VITAL SIGNS Weight 250.0 lbs Sep, Weight-kg 113.4 kg Sep, Height 65 in Sep, BMI 41.60 kg/m2 Sep, Heart Rate 86 /min Sep, Respiratory Rate 18 /min Sep, Temperature 98.1 degrees Fahrenheit Sep, Oximetry 98 Sep, Blood pressure systolic 126 mm Hg Sep, Blood pressure diastolic 84 mm Hg Sep, MEDICATIONS Medication SIG (Take, Route, Frequency, Duration) Notes Start Da te End Date Status Afrin Nasal [place] 0.05 % 2 sprays in each nostril [...] day(s) Feb, Active PROCEDURES No Information RESULTS Component Value Reference Range CBC with Differential Reviewed date:10/01/2020 11:07:20 Interpretation: Performing Lab:[facility] [place], [place] [facility] [address] [address] , ,[place] [address] WHITE BLOOD COUNT 5.3 4.0-10.0 RED BLOOD COUNT 4.83 4.00-5.40 HEMOGLOBIN 10.3 12.0-15.5 HEMATOCRIT 35.3 36.0-47.0 MEAN CORPUSCULAR VOLUME 73.1 80.0-96.0 MEAN CORPUSCULAR HEMOGLOBIN 21.3 27.0-33.0 MEAN CORPUSCULAR HGB CONC 29.2 32.0-36.5 RED CELL DISTRIBUTION WIDTH 19.3 11.5-14.5 PLATELET COUNT, AUTOMATED 347 150-450 NEUTROPHILS % 53.2 36.0-66.0 LYMPH % 31.3 24.0-44.0 MONO % 9.6 2.0-8.0 EOS % 4.3 0.0-3.0 BASO % 0.8 0.0-1.0 NEUTROPHILS # 2.8 1.5-8.5 LYMPH # 1.7 1.5-5.0 MONO # 0.5 0.0-0.8 EOS # 0.2 0.0-0.5 BASO # 0.0 0.0-0.2 FERRITIN Reviewed date:10/01/2020 11:07:28 Interpretation: Performing Lab:[facility] [address] [address] , ,[place] [address] FERRITIN 7 8-252 TOTAL IRON BINDING CAPACIT Reviewed date:10/01/2020 11:07:35 Interpretation: Performing Lab:[facility] [address] [address] , ,[facility] IRON (FE) 19 50-170 TOTAL IRON BINDING CAPACITY 485 250-450 PERCENT SATURATION 3.9 13.2-45.0 REASON FOR VISIT 6 MONTHS MEDICAL (GENERAL) HISTORY Type Description Date Medical [...] Treatment Notes Treatm ent Clinical Notes Sep, Anemia, unspecified type (ICD-10 - D64.9) [facility]. prior to that she was having heavy menstrual period for 3 weeks. she would soak up more than 3-5 pads per day daily. She has not since had her period post hysterectomy. I will repeat cbc as i do suspect the anemia is from acute blood loss from menorrhagia Sep, Obesity (BMI 30-39.9) (ICD-10 - E66.9) have educated patient on lifestyle modifications including daily exercise 40 mins a day and can try to break it down to 10 mins prior to breakfast, 10 mins prior to lunch and 10 mins before dinner and 10 mins before sleep. PLAN OF TREATMENT Medication Medication Name Sig Start Date Stop Date Ferrous Sulfate 325 (65 Fe) MG 1 tablet Orally Once a day fo r 30 day(s) Sep, Treatment Notes Assessment Notes Clinical Notes Anemia, unspecified type Pt had a hyster ectomy [facility] 2020. prior to that she was having heavy menstrual period for 3 weeks. she would soak up more than 3-5 pads per day daily. She has not since had her period post hysterectomy. I will repeat cbc as i do suspect the anemia is from acute blood loss from menorrhagia Obesity (BMI 30-39.9) have educated rivera ent on lifestyle modifications including daily exercise 40 mins a day and can try to break it down to 10 mins prior to breakfast, 10 mins prior to lunch and 10 mins before dinner and 10 mins before sleep. Treatment Notes Test Name Order Date IRON (FE) 2020-09-30 TRANSFERRIN 2020-09-30 Next Appt Details 6 Months Reason: Insurance Providers Payer Name Payer Address Payer Phone Insured Name Patient Relati onship to Insured Coverage Start Date Coverage End Date [facility] [address] [facility] [id number] VERENA ALAMO self
--- OUTSIDE RECORDS SUMMARY | 2020-12-17 12:26 | CCD ---
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 Name Role Phone ISABEL, Nils KENDALL Unavailable Unavailable LETTIERE, Nils KENDALL Unavailable Unavailable LETTIERE, Nils KENDALL Unavailable Unavailable LETTIERE, Nils KENDALL Unavailable Unavailable LETTIERE, Nils KENDALL Unavailable Unavailable LETTIERE, Nils KENDALL Unavailable Unavailable LETTIERE, Nils KENDALL Unavailable Unavailable LETTIERE, Nils KENDALL Unavailable Unavailable LETTIERE, Nils KENDALL Unavailable Unavailable LETTIERE, Nils KENDALL Unavailable Unavailable LETTIERE, Nils KENDALL Unavailable Unavailable LETTIERE, Nils KENDALL Unavailable Unavailable LETTIERE, Nils KENDALL Unavailable Unavailable LETTIERE, Nils KENDALL Unavailable Unavailable LETTIERE, Nils KENDALL Unavailable Unavailable LETTIERE, Nils KENDALL Unavailable Unavailable LETTIERE, A PAVITHRA PA Unavailable Unavailable LETTIERE, A PAVITHRA PA Unavailable Unavailable LETTIERE, A PAVITHRA PA Unavailable Unavailable LETTIERE, A PAVITHRA PA Unavailable Unavailable LETTIERE, A PAVITHRA PA Unavailable Unavailable LETTIERE, A PAVITHRA PA Unavailable Unavailable LETTIERE, A PAVITHRA PA Unavailable Unavailable LETTIERE, A PAVITHRA PA Unavailable Unavailable LETTIERE, A PAVITHRA PA Unavailable Unavailable LETTIERE, A PAVITHRA PA Unavailable Unavailable LETTIERE, A PAVITHRA PA Unavailable Unavailable LETTIERE, A PAVITHRA PA Unavailable Unavailable LETTIERE, A PAVITHRA PA Unavailable Unavailable LETTIERE, A PAVITHRA PA Unavailable Unavailable LETTIERE, A PAVITHRA PA Unavailable Unavailable MCELHERAN, PAVITHRA PA Unavailable Unavailable MCELHERAN, PAVITHRA PA Unavailable Unavailable MCELHERAN, PAVITHRA PA Unavailable Unavailable MCELHERAN, PAVITHRA PA Unavailable Unavailable MCELHERAN, PAVITHRA PA Unavailable Unavailable MCELHERAN, PAVITHRA PA Unavailable Unavailable MCELHERAN, PAVITHRA PA Unavailable Unavailable MCELHERAN, PAVITHRA PA Unavailable Unavailable MCELHERAN, PAVITHRA PA Unavailable Unavailable MCELHERAN, PAVITHRA PA Unavailable Unavailable MCELHERAN, PVAITHRA PA Unavailable Unavailable MCELHERAN, PAVITHRA PA Unavailable Unavailable MCELHERAN, PAVITHRA PA Unavailable Unavailable MCELHERAN, PAVITHRA PA Unavailable Unavailable MCELHERAN, PAVITHRA PA Unavailable Unavailable MCELHERAN, PAVITHRA PA Unavailable Unavailable MCELHERAN, PAVITHRA PA Unavailable Unavailable MCELHERAN, PAVITHRA PA Unavailable Unavailable MCELHERAN, PAVITHRA PA Unavailable Unavailable MCELHERAN, PAVITHRA PA Unavailable Unavailable MCELHERAN, PAVITHRA PA Unavailable Unavailable MCELHERAN, PAVITHRA PA Unavailable Unavailable MCELHERAN, PAVITHRA PA Unavailable Unavailable MCELHERAN, PAVITHRA PA Unavailable Unavailable MCELHERAN, PAVITHRA PA Unavailable Unavailable MCELHERAN, PAVITHRA PA Unavailable Unavailable MCELHERAN, PAVITHRA PA Unavailable Unavailable MCELHERAN, PAVITHRA PA Unavailable Unavailable MCELHERAN, PAVITHRA PA Unavailable Unavailable Lars NATARAJANAlix Unavailable Campanaro, Mare Vilma PA Unavailable Unavailable Campanaro, Mare Vilma PA Unavailable Unavailable Campanaro, Mare Vilma PA Unavailable Unavailable Campanaro, Mare Vilma PA Unavailable Unavailable Campanaro, Mare Vilma PA Unavailable Unavailable Campanaro, Mare Vilma PA Unavailable Unavailable Campanaro, Mare Vilma PA Unavailable Unavailable Campanaro, Mare Vilma PA Unavailable Unavailable Campanaro, Mare Vilma PA Unavailable Unavailable Campanaro, Mare Vilma PA Unavailable Unavailable Campanaro, Mare Vilma PA Unavailable Unavailable Campanaro, Mare Vilma PA Unavailable Unavailable Campanaro, Mare Vilma PA Unavailable Unavailable Campanaro, Mare Vilma PA Unavailable Unavailable Campanaro, Mare Vilma PA Unavailable Unavailable Campanaro, Mare Vilma PA Unavailable Unavailable Campanaro, Mare Vilma PA Unavailable Unavailable DRAZEK, I GEORGE PA Unavailable Unavailable DRAZEK, I GEORGE PA Unavailable Unavailable DRAZEK, I GEORGE PA Unavailable Unavailable DRAZEK, I GEORGE PA Unavailable Unavailable DRAZEK, I GEORGE PA Unavailable Unavailable DRAZEK, I GEORGE PA Unavailable Unavailable DRAZEK, I GEORGE PA Unavailable Unavailable DRAZEK, I GEORGE PA Unavailable Unavailable DRAZEK, I GEORGE PA Unavailable Unavailable DRAZEK, I GEORGE PA Unavailable Unavailable DRAZEK, I GEORGE PA Unavailable Unavailable DRAZEK, I GEORGE PA Unavailable Unavailable DRAZEK, I GEORGE PA Unavailable Unavailable DRAZEK, I GEORGE PA Unavailable Unavailable DRAZEK, I GEORGE PA Unavailable Unavailable DRAZEK, I GEORGE PA Unavailable Unavailable DRAZEK, I GEORGE PA Unavailable Unavailable DRAZEK, I GEORGE PA Unavailable Unavailable DRAZEK, I GEORGE PA Unavailable Unavailable DRAZEK, I GEORGE PA Unavailable Unavailable DRAZEK, I GEORGE PA Unavailable Unavailable DRAZEK, I GEORGE PA Unavailable Unavailable DRAZEK, I GEORGE PA Unavailable Unavailable DRAZEK, I GEORGE PA Unavailable Unavailable DRAZEK, I GOERGE PA Unavailable Unavailable DRAZEK, I GEORGE PA Unavailable Unavailable DRAZEK, I GEORGE PA Unavailable Unavailable DRAZEK, I GEORGE PA Unavailable Unavailable DRAZEK, I GEORGE PA Unavailable Unavailable DRAZEK, I GEORGE PA Unavailable Unavailable Re-disclosure Warning The records that you are about to access may contain information from federally-assisted alcohol or drug abuse programs. If such information is present, then the following federally mandated warning applies: This information has been disclosed to you from records protected by federal confidentiality rules (42 CFR part 2). The federal rules prohibit you from making any further disclosure of this information unless further disclosure is expressly permitted by the written consent of the person to whom it pertains or as otherwise permitted by 42 CFR part 2. A general authorization for the release of medical or other information is NOT sufficient for this purpose. The Federal rules restrict any use of the information to criminally investigate or prosecute any alcohol or drug abuse patient.The records that you are about to access may contain highly sensitive health information, the redisclosure of which is protected by Article 27-F of the [facility] Public Health law. If you continue you may have access to information: Regarding HIV / AIDS; Provided by facilities licensed or operated by the [facility] Office of Mental Health; or Provided by the [facility] Office for People With Developmental Disabilities. If such information is present, then the following [facility] mandated warning applies: This information has been disclosed to you from confidential records which are protected by state law. State law prohibits you from making any further disclosure of this information without the specific written consent of the person to whom it pertains, or as otherwise permitted by law. Any unauthorized further disclosure in violation of state law may result in a fine or usp sentence or both. A general authorization for the release of medical or other information is NOT sufficient authorization for further disc losure. 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 -NO Family History Family Member Name Family Member Gender Family Member Status Date o f Status Description Data Source(s) Unknown Unknown Problem [facility] ([facility]) Unknown Female Encounters Encounter Providers Location Date Indications Data Source(s ) [place] [address] [facility] [place] [address] 11/06/2020 12:00:00 AM EDT eCW1 ([facility]) Unknown [address] [facility] [address] [place] [address] 10/13/2020 12:00:00 AM EDT eCW1 ([facility]) Unknown [address] [facility] [address] [place] [address] 10/01/2020 12:00:00 AM EDT eCW1 ([facility]) Outpatient [address] [facility] [place] [address] 09/30/2020 12:00:00 AM EDT eCW1 ([facility]) ([facility]) WCenter 15 min est clinical cytogenetics director [address] [place] [address] 2020 12:00:00 AM EDT eCW1 ([facility]) Outpatient<td ID="[email or web address]">Hygeine 45min</td><td>Alix Sousa [facility]</td><td>[facility]</td><td>07/24/2020</td><td>1:51PM</td><td>3:16PM</td><td></td> Attender: Alix Sousa [facility] 07/24/2020 01:51:00 PM EDT - 07/24/2020 03:16:00 PM EDT [place] ([facility]) OFFICE OUTPATIENT VISIT 15 MINUTES Attender: PAVITHRA KENDALL Physical Therapy 07/16/2020 03:45:00 PM EDT MED[facility] ([facility]) ([facility] 15ESGYN) WCenter 15 min est clinical cytogenetics director [address] [place] [address] 07/04/2020 12:00:00 AM EDT eCW1 ([facility]) ([facility] 15ESGYN) WCenter 15 min est clinical cytogenetics director [address] [place] [address] 06/30/2020 12:00:00 AM EDT eCW1 ([facility]) ([facility] 15ESGYN) WCenter 15 min est clinical cytogenetics director [address] [place] [address] 06/09/2020 12:00:00 AM EDT eCW1 ([facility]) Outpatient [address] [facility] [address] 05/19/2020 12:00:00 AM EDT eCW1 ([facility]) Unknown [address] [facility] [address] 05/19/2020 12:00:00 AM EDT eCW1 ([facility]) Outpatient [address] [facility] [place] [address] 05/07/2020 12:00:00 AM EDT eCW1 ([facility]) OFFICE OUTPATIENT VISIT 15 MINUTES Attender: PAVITHRA KENDALL Physical Therapy 05/01/2020 07:15:00 AM EST [facility] ([facility]) OFFICE OUTPATIENT VISIT 15 MINUTES Attender: PAVITHRA KENDALL Physical Therapy 04/17/2020 02:45:00 PM EST [facility] ([facility]) Outpatient Attender: PAVITHRA Mabry Prim michael 04/13/2020 01:20:00 PM EST [facility] ([facility] Outpatient [address] [facility] [place] [address] 03/27/2020 12:00:00 AM EST eCW1 ([facility]) OFFICE OUTPATIENT VISIT 15 MINUTES Attender: PAVITHRA KENDALL Physical Therapy 03/05/2020 09:00:00 AM EST [facility] ([facility]) Outpatient Attender: Vilma Mabry Prim michael 01/21/2020 04:40:00 PM EST [facility] ([facility]) OFFICE OUTPATIENT VISIT 15 MINUTES Attender: GEORGE KENDALL Phys ical Therapy 11/16/2019 09:15:00 AM EDT [facility] ([facility]) Immunizations Vaccine Date Status Description Data Source(s) COVID-19 VACCINE [facility] 05/23/2020 12:00:00 AM EDT completed [facility] Vaccine Series Complete: YESThis Data wa s Submitted to [facility] Via [facility]. Influenza Virus Vaccine, Quadrivalent (Cciiv4), Derive d From Cell 01/20/2020 11:00:00 PM EST completed [facility] ([facility]) Medications Medication Brand Name Start Date Product Form Dose Route Admi nistrative Instructions Pharmacy Instructions Status Indications Reaction Description Data Source(s) 20 mg 11/07/2020 12:00:00 AM EDT capsule 30 TAKE ONE CAPSULE BY MOUTH EVERY DAY TAKE ONE CAPSULE BY MOUTH EVERY DAY SOLD: 11/07/2020 [facility] 325 mg (65 mg iron) 11/06/2020 12:00:00 AM EDT tablet 30 TAKE ONE TABLET BY MOUTH EVERY DAY TAKE ONE TABLET BY MOUTH EVERY DAY SOLD: 11/07/2020 [facility] Hydroxyzine Hydrochloride 10 MG Oral Tablet hydrOXYzin e HCl 10 MG hydrOXYzine HCl 10 MG 11/05/2020 12:00:00 AM EDT active hydrOXYzine HCl 10 MG eCW1 ([facility]) Fluoxetine 20 MG Oral Capsule FLUoxetine HCl 20 MG FLUoxetin e HCl 20 MG 11/05/2020 12:00:00 AM EDT 1.0 {capsule} active FLUoxetine HCl 20 MG eCW1 ([facility]) 325 mg (65 mg iron) 10/01/2020 12:00:00 AM EDT tablet 30 TAKE ONE TABLET BY MOUTH EVERY DAY TAKE ONE TABLET BY MOUTH EVERY DAY SOLD: 10/02/2020 [facility] ferrous sulfate 325 MG Oral Tablet Ferrous Sulfate 325 (65 Fe) MG Ferrous Sulfate 325 (65 Fe) MG 10/01/2020 12:00:00 AM EDT 1.0 {tablet} active Ferrous Sulfate 325 (65 Fe) MG eCW1 ([facility]) ferrous sulfate 325 MG Oral Tablet Ferrous Sulfate 325 (65 Fe) MG Ferrous Sulfate 325 (65 Fe) MG 10/01/2020 12:00:00 AM EDT 1.0 {tablet} active Ferrous Sulfate 325 (65 Fe) MG eCW1 ([facility]) ferrous sulfate 325 MG Oral Tablet Ferrous Sulfate 325 (65 Fe) MG Ferrous Sulfate 325 (65 Fe) MG 10/01/2020 12:00:00 AM EDT 1.0 {tablet} active Ferrous Sulfate 325 (65 Fe) MG eCW1 ([facility]) 2 % 08/03/2020 12:00:00 AM EDT solution 100 TAKE 5ML BY MOUTH FOUR TIMES A DAY FOR MOUTH SORE PAIN TAKE 5ML BY MOUTH FOUR TIMES A DAY FOR MOUTH SORE PAIN SOLD: 08/03/2020 [facility] 0.5 mg/5 mL 08/03/2020 12:00:00 AM EDT elixir 75 SWISH AND SPIT 5ML BY MOUTH THREE TIMES A DAY SWISH AND SPIT 5ML BY MOUTH THREE TIMES A DAY SOLD: [facility] 5-325 mg 06/14/2020 12:00:00 AM EDT tablet 20 TAKE ONE TABLET BY MOUTH THREE TIMES A DAY NEEDED FOR PAIN MAXIMUM DAILY DOSE = 3 TABLETS TAKE ONE TABLET BY MOUTH THREE TIMES A DAY NEEDED FOR PAIN MAXIMUM DAILY DOSE = 3 TABLETS SOLD: 06/14/2020 [facility] 600 mg 06/14/2020 12:00:00 AM EDT tablet 30 TAKE ONE TABLET BY MOUTH THREE TIMES A DAY WITH FOOD FOR PAIN TAKE ONE TABLET BY MOUTH THREE TIMES A D AY WITH FOOD FOR PAIN SOLD: 06/14/2020 [facility] 20 mg 05/24/2020 12:00:00 AM EDT capsule 30 TAKE ONE CAPSULE BY MOUTH EVERY DAY DIRECTED TAKE ONE CAPSULE BY MOUTH EVERY DAY DIRECTED SOLD: 05/26/2020 [facility] Fluconazole 150 MG Oral Tablet Fluconazole 150 MG 05/19/2020 12:00: 00 AM EDT 1.0 {tablet} active Fluconazole 150 MG eCW1 ([facility]) 500-125 mg 05/19/2020 12:00:00 AM EDT tablet 21 TAKE ONE TABLET BY MOUTH EVERY 8 HOURS FOR 7 DAYS TAKE ONE TABLET BY MOUTH EVERY 8 HOURS FOR 7 DAYS SOLD : 05/19/2020 [facility] 150 mg 05/19/2020 12:00:00 AM EDT tablet 2 TAKE ONE TABLET BY MOUTH EVERY 72 HOUR TAKE ONE TABLET BY MOUTH EVERY 72 HOUR SOLD: 05/19/2020 [facility] Amoxicillin 500 MG / Clavulanate 125 MG Oral Tablet [Augmentin] Augmentin 500- 125 MG Augmentin 500-125 MG 05/19/2020 12:00:00 AM EDT 1.0 {tablet} active Augmentin 500-125 MG eCW1 ([facility]) tizanidine 4 MG Oral Tablet TIZANIDINE HCL 05/01/2020 12:00:00 AM EST tablet 30 TAKE ONE - TWO TABLETS BY MOUTH AT BEDTIME TAKE ONE - TWO TABLETS BY MOUTH AT BEDTIME SOLD: 05/02/2020 [facility] tizanidine 4 MG Oral Tablet Tizanidine HCL 05/01/2020 12:00:00 AM EST active [facility]ENT ([facility]) Amoxicillin 875 MG Oral Tablet Amoxicillin 04/13/2020 12:00:00 AM EST active MEDENT ([facility]) 875 mg 04/13/2020 12:00:00 AM EST tablet 20 TAKE ONE TABLET BY MOUTH EVERY 12 HOURS FOR 10 DAYS TAKE ONE TABLET BY MOUTH EVERY 12 HOURS FOR 10 DAYS SO LD: 04/13/2020 [facility] 50 mg 03/28/2020 12:00:00 AM EST tablet 30 TAKE ONE TABLET BY MOUTH EVERY DAY NEEDED MAXIMUM DAILY DOSE = 1 TAKE ONE TABLET BY MOUTH EVERY DAY NEEDED MAXIMUM DAILY DOSE = 1 SOLD: 03/31/2020 [facility] tramadol hydrochloride 50 MG Oral Tablet traMADol HCl 50 MG traMADol HCl 50 MG 03/27/2020 12:00:00 AM EST 1.0 {tablet_as_needed} suspended traMADol HCl 50 MG eCW1 ([facility]) tramadol hydrochloride 50 MG Oral Tablet Tramadol HCl 50 MG Tramadol HCl 50 MG 03/27/2020 12:00:00 AM EST 1.0 {tablet_as_needed} active Tramadol HCl 50 MG eCW1 ([facility]) tramadol hydrochloride 50 MG Oral Tablet Tramadol HCl 50 MG Tramadol HCl 50 MG 03/27/2020 12:00:00 AM EST 1.0 {tablet_as_needed} active Tramadol HCl 50 MG eCW1 ([facility]) tramadol hydrochloride 50 MG Oral Tablet Tramadol HCl 50 MG Tramadol HCl 50 MG 03/27/2020 12:00:00 AM EST 1.0 {tablet_as_needed} active Tramadol HCl 50 MG eCW1 ([facility]) tramadol hydrochloride 50 MG Oral Tablet traMADol HCl 50 MG traMADol HCl 50 MG 03/27/2020 12:00:00 AM EST 1.0 {tablet_as_needed} suspended traMADol HCl 50 MG eCW1 ([facility]) tramadol hydrochloride 50 MG Oral Tablet traMADol HCl 50 MG traMADol HCl 50 MG 03/27/2020 12:00:00 AM EST 1.0 {tablet_as_needed} suspended traMADol HCl 50 MG eCW1 ([facility]) tramadol hydrochloride 50 MG Oral Tablet traMADol HCl 50 MG traMADol HCl 50 MG 03/27/2020 12:00:00 AM EST 1.0 {tablet_as_needed} suspended traMADol HCl 50 MG eCW1 ([facility]) tramadol hydrochloride 50 MG Oral Tablet Tramadol HCl 50 MG Tramadol HCl 50 MG 03/27/2020 12:00:00 AM EST 1.0 {tablet_as_needed} active Tramadol HCl 50 MG eCW1 ([facility]) tramadol hydrochloride 50 MG Oral Tablet traMADol HCl 50 MG traMADol HCl 50 MG 03/27/2020 12:00:00 AM EST 1.0 {tablet_as_needed} suspended traMADol HCl 50 MG eCW1 ([facility]) tramadol hydrochloride 50 MG Oral Tablet Tramadol HCl 50 MG Tramadol HCl 50 MG 03/27/2020 12:00:00 AM EST 1.0 {tablet_as_needed} active Tramadol HCl 50 MG eCW1 ([facility]) tramadol hydrochloride 50 MG Oral Tablet Tramadol HCl 50 MG Tramadol HCl 50 MG 03/27/2020 12:00:00 AM EST 1.0 {tablet_as_needed} active Tramadol HCl 50 MG eCW1 ([facility]) tramadol hydrochloride 50 MG Oral Tablet Tramadol HCl 50 MG Tramadol HCl 50 MG 03/27/2020 12:00:00 AM EST 1.0 {tablet_as_needed} active Tramadol HCl 50 MG eCW1 ([facility]) 20 mg 03/15/2020 12:00:00 AM EST capsule 30 TAKE ONE CAPSULE BY MOUTH EVERY DAY DIRECTED TAKE ONE CAPSULE BY MOUTH EVERY DAY DIRECTED SOLD: 03/18/2020 [facility] Lidocaine Hydrochloride 40 MG/ML Topical Cream Aspercreme W/ Lidocaine 01/21/2020 12:00:00 AM EST completed [facility] ([facility]) meloxicam 7.5 MG Oral Tablet [Mobic] Mobic 10/05/2019 12:00:00 AM EDT ORAL completed [facility] ([facility] ) Cyclobenzaprine hydrochloride 10 MG Oral Tablet Cyclobenzapr ine HCL 09/28/2019 12:00:00 AM EDT completed MEDENT ([facility], [facility]) Insurance Providers Payer name Policy type / Coverage type Policy ID Covered libertarian ID Covered libertarian's relationship to ruiz Policy Ruiz Plan Information AETNA [facility] [id number] SP [id number] [facility] MCDO [id number] SP [id number] PROGRESSIVE CO NO FAULT [id number] SP [id number] [facility] HEALTH CARE O [id number] S [id number] [facility] [id number] SP [id number] [facility] Commercial [id number] Self [id number] [facility] Commercial [id number] Self [id number] [facility] O [id number] S [id number] MEDICAID [id number] S [id number] SELF PAY SP [facility] [id number] SP [id number] MEDICAID [id number] SP [id number] [facility] [id number] SP [id number] [facility] Commercial [id number] Self SELF PAY 5 UNAVAILABLE 1 UNAVAILA BLE [facility] [id number] SP [id number] Problems, Conditions, and Diagnoses Code Display Name Description Problem Type Effective Dates Data Source(s) F41.9 82697571 Anxiety Problem 11/05/2020 12:00:00 AM ED T eCW1 ([facility]) F32.9 [id number] Major depressive dis order, remission status unspecified, unspecified whether recurrent Problem 11/05/2020 12:00:00 AM EDT eCW 1 ([facility]) D50.9 [id number] Iron deficiency anemia, unspecif ied iron deficiency anemia type Problem 10/01/2020 12:00:00 AM EDT eCW1 ([facility]) E66.9 [id number] Obesity (BMI 30-39.9) Problem 09/30/2020 12: 00:00 AM EDT eCW1 ([facility]) D50.9 [id number] Microcytic anemia Problem 03/28/2020 12:00:0 0 AM EST eCW1 ([facility]) M17.12 [id number] Primary osteoarthritis of left knee Pr oblem 03/27/2020 12:00:00 AM EST eCW1 ([facility]) Z68.41 [id number] Body mass index [BMI]40.0-44.9, adult Pro blem 03/27/2020 12:00:00 AM EST eCW1 ([facility]) E66.01 [id number] Morbid (severe) obesity due to excess c alories Problem 03/27/2020 12:00:00 AM EST eCW1 ([facility]) Surgeries/Procedures Procedure Description Date Indications Data Source(s) Clinical summary transmitted to yasmin anguiano provider electronically with reasonable certainty of receipt or receiving provider [facility] through [facility] 07/24/2020 12:00:00 AM EDT - 07/24/2020 12:00:00 AM EDT [facility] ([facility]) Transition in care medication list update 07/24/2020 12:00:00 AM EDT - 07/24/2020 12:00:00 AM EDT [facility] ([facility]) Nutritional Counseling Nutritional Counseling 07/24/2020 12:00:00 A M EDT [facility] ([facility]) Oral Hygiene/[facility] Oral Hygiene/[facility] 07/24/2020 12:00:00 AM EDT [facility] ([facility]) Periodontal Charting Periodontal Charting 07/24/2020 12:00:00 AM ED T [facility] ([facility]) Prophylaxis Adult Prophylaxis Adult 07/24/2020 12:00:00 AM EDT [facility] ([facility]) Periodic Oral Evaluation Periodic Oral Evaluation 07/24/2020 12:00: 00 AM EDT [facility] ([facility]) Oral Cancer Screening Oral Cancer Screening 07/24/2020 12:00:00 AM EDT [facility] ([facility]) MRI Lower Extremity Any Joint 04/24/2020 12:00:[address] [facility] ([facility] ) ARTHROCENTESIS ASPIR&/INJECTION MAJOR JT/BURSA 021 12:00:00 AM EST [facility] ([facility] ) THERAPEUTIC PX 1/> AREAS EACH 15 MIN EXERCISES 020 12:00:00 AM EDT [facility] ([facility]) MANUAL THERAPY TQS 1/> REGIONS EACH 15 MINUTES 12:00:00 AM EDT [facility] ([facility]) THERAPEUTIC PX 1/> AREAS EACH 15 MIN EXERCISES 12:00:00 AM EDT [facility] ([facility]) MANUAL THERAPY TQS 1/> REGIONS EACH 15 MINUTES 12:00:00 AM EDT [facility] ([facility]) THERAPEUTIC PX 1/> AREAS EACH 15 MIN EXERCISES 12:00:00 AM EDT [facility] ([facility]) MANUAL THERAPY TQS 1/> REGIONS EACH 15 MINUTES 12:00:00 AM EDT [facility] ([facility]) THERAPEUTIC PX 1/> AREAS EACH 15 MIN EXERCISES 12:00:00 AM EDT [facility] ([facility]) MANUAL THERAPY TQS 1/> REGIONS EACH 15 MINUTES 12:00:00 AM EDT [facility] ([facility]) THERAPEUTIC PX 1/> AREAS EACH 15 MIN EXERCISES 12:00:00 AM EDT [facility] ([facility]) MANUAL THERAPY TQS 1/> REGIONS EACH 15 MINUTES 12:00:00 AM EDT [facility] ([facility]) Results ID Date Data Source TOTAL IRON BINDING CAPACIT 09/30/2020 12:00:00 AM EDT eCW1 ( [facility]) Name Value Range Interpretation Code Description Data Karol rce(s) Supporting Document(s) 485 250-450 TOTAL IRON BINDING CAPACI TY eCW1 ([facility]) 19 50-170 IRON (FE) eCW1 ([facility]) 3.9 13.2-45.0 PERCENT SATURATION eCW1 ([facility]) ID Date Data Source FERRITIN 09/30/2020 12:00:00 AM EDT eCW1 ([facility]) Name Value Range Interpretation Code Description Data Karol rce(s) Supporting Document(s) 7 8-252 FERRITIN eCW1 ([facility]) ID Date Data Source CBC with Differential 09/30/2020 12:00:00 AM EDT eCW1 ([facility]) Name Value Range Interpretation Code Description Data Karol rce(s) Supporting Document(s) 4.83 4.00-5.40 RED BLOOD COUNT eCW1 ([facility]) 5.3 4.0-10.0 WHITE BLOOD COUNT eCW1 ([facility]) 73.1 80.0-96.0 MEAN CORPUSCULAR VOLUME e CW1 ([facility]) 10.3 12.0-15.5 HEMOGLOBIN eCW1 ([facility]) 35.3 36.0-47.0 HEMATOCRIT eCW1 ([facility]) 21.3 27.0-33.0 MEAN CORPUSCULAR HEMOGLOB IN eCW1 ([facility]) 29.2 32.0-36.5 MEAN CORPUSCULAR HGB CONC eCW1 ([facility]) 19.3 11.5-14.5 RED CELL DISTRIBUTION WID TH eCW1 ([facility]) 347 150-450 PLATELET COUNT, AUTOMATED eCW1 ([facility]) 9.6 2.0-8.0 MONO % eCW1 ([facility]) 31.3 24.0-44.0 LYMPH % eCW1 ([facility]) 53.2 36.0-66.0 NEUTROPHILS % eCW1 ([facility]) 0.8 0.0-1.0 BASO % eCW1 ([facility]) 4.3 0.0-3.0 EOS % eCW1 ([facility]) 2.8 1.5-8.5 NEUTROPHILS # eCW1 ([facility]) 0.2 0.0-0.5 EOS # eCW1 ([facility]) 1.7 1.5-5.0 LYMPH # eCW1 ([facility]) 0.5 0.0-0.8 MONO # eCW1 ([facility]) 0.0 0.0-0.2 BASO # eCW1 ([facility]) ID Date Data Source [id number] 06/19/2020 01:43:00 AM EDT [facility] ([facility]) Name Value Range Interpretation Code Description Data Karol rce(s) Supporting Document(s) Laboratory test finding (navigational concept) Laboratory test result [facility] ([facility]) Laboratory test finding (navigational concept) Laboratory test result [facility] ([facility]) Laboratory test finding (navigational concept) 6.0 units 5.0-9.0 MED[facility] ([facility]) Laboratory test finding (navigational concept) 1.019 1.002-1.035 MED[facility] ([facility]) Laboratory test finding (navigational concept) Laboratory test result [facility] ([facility]) Laboratory test finding (navigational concept) Laboratory test result [facility] ([facility]) Laboratory test finding (navigational concept) Laboratory test result [facility] ([facility]) Laboratory test finding (navigational concept) 0.2 mg/dL 0.0-2.0 MED[facility] ([facility]) Laboratory test finding (navigational concept) Laboratory test result [facility] ([facility]) Laboratory test finding (navigational concept) Laboratory test result [facility] ([facility]) Laboratory test finding (navigational concept) Laboratory test result [facility] ([facility]) Laboratory test finding (navigational concept) 1 /HPF 0-3 [facility] ([facility]) Laboratory test finding (navigational concept) Laboratory test result [facility] ([facility]) Laboratory test finding (navigational concept) 1 /HPF 0-3 [facility] ([facility]) Laboratory test finding (navigational concept) Laboratory test result [facility] ([facility]) Laboratory test finding (navigational concept) 7 /HPF 0-6 [facility] ([facility]) Laboratory test finding (navigational concept) 0 /LPF 0-1 MED[facility] ([facility]) Laboratory test finding (navigational concept) [facility] test [facility]) ID Date Data Source [id number] 06/19/2020 01:43:00 AM EDT [facility]) Name Value Range Interpretation Code Description Data Karol rce(s) Supporting Document(s) Laboratory test finding (navigational concept) Laboratory test result [facility] ([facility]) Reference Interval: Negative for Clue Ce lls, Trichomonas vaginalis or Yeast like organisms. WET PREP RESULT MANY EPITHELIAL CELLS PRESENT MANY RBC MODERATE WBC FEW SHORT RODS PRESENT FEW LONG RODS PRESENT ID Date Data Source [id number] 06/19/2020 12:05:00 AM EDT [facility] ([facility]) Name Value Range Interpretation Code Description Data Karol rce(s) Supporting Document(s) AB Screen (Indirect [place])Vis Laboratory test result [facility] ([facility]) Blood Type Laboratory test result [facility] ([facility]) ID Date Data Source [id number] 06/08/2020 11:55:00 AM EDT [facility] Name Value Range Interpretation Code Description Data Karol rce(s) Supporting Document(s) SARS-CoV-2 (COVID-19) RNA [Presence] in Respiratory specimen by JAMES with probe detection Not Detected [facility] This lab was ordered by [facility] and reported by [employer] ID Date Data Source [id number] 04/13/2020 12:00:00 AM EST [facility] Name Value Range Interpretation Code Description Data Karol rce(s) Supporting Document(s) SARS-CoV2 Rapid Antigen Negative [facility] This lab was reported by [facility]. ID Date Data Source LIPID PANEL (CARDIAC RISK) 03/27/2020 12:00:00 AM EST eCW1 ( [facility]) Name Value Range Interpretation Code Description Data Karol rce(s) Supporting Document(s) Triglyceride [Mass/volume] in Serum or Plasma by calculation 22 <150 TRIGLYCERIDES LEVEL eC1 ([facility]) Cholesterol [Moles/volume] in Serum or Plasma 125 <200 CHOLESTEROL LEVEL eCW1 ([facility]) Cholesterol in HDL [Moles/volume] in Serum or Plasma 94 >40 HDL CHOLESTEROL eCW1 ([facility]) Cholesterol in LDL [Mass/volume] in Serum or Plasma by calculation 27 <100 LDL CHOLESTEROL eCW1 ([facility]) 1.329 <5 CHOLESTEROL RISK RATIO eCW1 ([facility]) 31 NON-HDL-C eCW1 ([facility]) ID Date Data Source [id number] 03/27/2020 12:00:00 AM EST eCW1 ([facility]) Name Value Range Interpretation Code Description Data Karol rce(s) Supporting Document(s) Hemoglobin A1c/Hemoglobin.total in Blood 5.7 HEMOGLOBIN A1c eCW1 ([facility]) ID Date Data Source Comprehensive Metabolic Profile (CMP) 03/27/2020 12:00:00 AM EST eCW1 ([facility]) Name Value Range Interpretation Code Description Data Karol rce(s) Supporting Document(s) 18 7-18 BLOOD UREA NITROGEN eCW1 ([facility]) 93 70-100 GLUCOSE, FASTING eCW1 ([facility]) > 60.0 >58 GLOMERULAR FILTRATION RATE eCW 1 ([facility]) 0.77 0.55-1.30 CREATININE FOR GFR eCW1 ([facility]) 4.2 3.5-5.1 POTASSIUM SERUM eCW1 ([facility]) 142 136-145 SODIUM LEVEL eCW1 ([facility]) 25 21-32 CARBON DIOXIDE LEVEL eCW1 ([facility]) 108 98-107 CHLORIDE LEVEL eCW1 ([facility]) 8.9 8.5-10.1 CALCIUM LEVEL eCW1 ([facility]) 24 7-37 AST/SGOT eCW1 ([facility]) 32 12-78 ALT/SGPT eCW1 ([facility]) 55 45-117 ALKALINE PHOSPHATASE eCW1 ([facility]) 1.3 1.2-2.2 ALBUMIN/GLOBULIN RATIO eCW1 ([facility]) 3.6 3.2-5.2 ALBUMIN eCW1 ([facility]) 1.0 0.2-1.0 BILIRUBIN,TOTAL eCW1 ([facility]) 6.4 6.4-8.2 TOTAL PROTEIN eCW1 ([facility]) ID Date Data Source [id number] 03/05/2020 11:25:00 AM EST [facility] ([facility]) Name Value Range Interpretation Code Description Data Karol rce(s) Supporting Document(s) Lyme Disease IgM Ab Quantitati Laboratory test result 0.00-0.79 [facility] ([facility]) <content>Negative <0.80</content >
<content>Equivocal 0.80 - 1.19</content>
<content>Positive >1.19</content>
<content>.</content>
<content>IgM levels may peak at 3-6 weeks post infection, then</content>
<content>gradually decline.</content>
<content></content> Lyme Disease IgG/IgM Antibodie Laboratory test result 0.00-0.90 [facility] ([facility]) <content>Negative <0.91</content >
<content>Equivocal 0.91 - 1.09</content>
<content>Positive >1.09</content>
<content></content> ID Date Data Source [id number] 03/05/2020 11:25:00 AM EST [facility] ([facility]) Name Value Range Interpretation Code Description Data Karol rce(s) Supporting Document(s) Erythrocyte sedimentation rate by Westergren method 8 mm/hr 0-20 [facility] ([facility]) C reactive protein [Mass/volume] in Serum or Plasma by High sensitivity method 0.43 mg/dL 0.00-0.30 [facility] ([facility]) ID Date Data Source [id number] 03/05/2020 11:25:00 AM EST [facility] ([facility]) Name Value Range Interpretation Code Description Data Karol rce(s) Supporting Document(s) Antinuclear Antibodies Direct Laboratory test result [facility] ([facility]) Performed at: RN - [facility] [address] [id number] [place] Cutter: Emily Rodriguez MD, Phone: [phone] ID Date Data Source [id number] 03/05/2020 11:25:00 AM EST [facility] ([facility]) Name Value Range Interpretation Code Description Data Karol rce(s) Supporting Document(s) Rheumatoid factor [Units/volume] in Serum or Plasma Laboratory test result [facility] ([facility]) Urate [Mass/volume] in Serum or Plasma 2.9 mg/dL 2.6-6.0 [facility] ([facility]) Procedure Social History Code Duration Value Status Description Data Source(s ) Smoking 11/05/2020 12:00:00 AM EDT Never Smoker completed Never S moker eCW1 ([facility]) Smoking 09/30/2020 12:00:00 AM EDT Never Smoker completed Never S moker eCW1 ([facility]) Smoking 09/30/2020 12:00:00 AM EDT Never Smoker completed Never S moker eCW1 ([facility]) Smoking 09/30/2020 12:00:00 AM EDT Never Smoker completed Never S moker eCW1 ([facility]) Smoking 08/06/2020 12:00:00 AM EDT Never Smoker completed Never S moker eCW1 ([facility]) Smoking 07/04/2020 12:00:00 AM EDT Never Smoker completed Never S moker eCW1 ([facility]) Smoking 06/30/2020 12:00:00 AM EDT Never Smoker completed Never S moker eCW1 ([facility]) Smoking 06/09/2020 12:00:00 AM EDT Never Smoker completed Never S moker eCW1 ([facility]) Smoking 06/09/2020 12:00:00 AM EDT Never Smoker completed Never S moker eCW1 ([facility]) Smoking 05/19/2020 12:00:00 AM EDT Never Smoker completed Never S moker eCW1 ([facility]) Smoking 05/07/2020 12:00:00 AM EDT Never Smoker completed Never S moker eCW1 ([facility]) Smoking 03/27/2020 12:00:00 AM EST Never Smoker completed Never S moker eCW1 ([facility]) Vital Signs ID Date Data Source [id number] Name Value Range Interpretation Code Description Data Source(s) Body temperature 98.1 [degF] 98.1 [degF] eCW1 ( [facility]) Body weight 250.0 [lb_av] 250.0 [lb_av] eCW1 [facility] Body weight 113.4 kg 113.4 kg eCW1 ([facility]) Body height 65 [in_i] 65 [in_i] eCW1 ([facility]) Body mass index (BMI) [Ratio] 41.60 kg/m2 41.60 kg/m2 W1 ([facility]) Heart rate 86 /min 86 /min eCW1 ([facility]) Respiratory rate 18 /min 18 /min eCW1 ([facility]) Systolic blood pressure 126 mm[Hg] 126 mm[Hg] e CW1 ([facility]) Diastolic blood pressure 84 mm[Hg] 84 mm[Hg] eCW1 ([facility]) Body height 65 [in_i] 65 [in_i] eCW1 ([facility]) Body weight 243.6 [lb_av] 243.6 [lb_av] eCW1 ([facility]) Body weight 110.5 kg 110.5 kg eCW1 ([facility]) Body mass index (BMI) [Ratio] 40.53 kg/m2 40.53 kg/m2 eCW1 ([facility]) Systolic blood pressure 134 mm[Hg] 134 mm[Hg] e CW1 ([facility]) Diastolic blood pressure 80 mm[Hg] 80 mm[Hg] eCW1 ([facility]) Body weight 246.2 [lb_av] 246.2 [lb_av] eCW1 ([facility] Body height 65 [in_i] 65 [in_i] eCW1 ([facility]) Body mass index (BMI) [Ratio] 40.97 kg/m2 40.97 kg/m2 eCW1 ([facility]) Systolic blood pressure 130 mm[Hg] 130 mm[Hg] e CW1 ([facility]) Diastolic blood pressure 80 mm[Hg] 80 mm[Hg] eCW1 ([facility]) Body weight 245.6 [lb_av] 245.6 [lb_av] eCW1 ([facility]) Body height 65 [in_i] 65 [in_i] eCW1 ([facility]) Body mass index (BMI) [Ratio] 40.87 kg/m2 40.87 kg/m2 eCW1 ([facility]) Systolic blood pressure 130 mm[Hg] 130 mm[Hg] e CW1 ([facility]) Diastolic blood pressure 80 mm[Hg] 80 mm[Hg] eCW1 ([facility]) Systolic blood pressure 130 mm[Hg] 130 mm[Hg] e CW1 ([facility]) Body mass index (BMI) [Ratio] 40.77 kg/m2 40.77 kg/m2 eCW1 ([facility]) Diastolic blood pressure 82 mm[Hg] 82 mm[Hg] eCW1 ([facility]) Body weight 245 [lb_av] 245 [lb_av] eCW1 ([facility]) Body height 65 [in_i] 65 [in_i] eCW1 ([facility]) Body mass index (BMI) [Ratio] 39.8 kg/m2 39.8 k g/m2 MEDENT ([facility], ) Body height 65 [in_i] 65 [in_i] MEDENT ([facility], ) 5'5" Oral body weight 125 [lb_av] 125 [lb_av] MEDEN T ([facility], ) Body weight 108.410 kg 108.410 kg MEDENT ([facility], ) Body surface area Derived from formula 2.13 m2 2.13 m2 [facility] ([facility] Body weight 239.00 [lb_av] 239.00 [lb_av] MEDEN T ([facility], ) Body weight 241 [lb_av] 241 [lb_av] eCW1 ([facility]) Body height 65 [in_i] 65 [in_i] eCW1 ([facility]) Body mass index (BMI) [Ratio] 40.10 kg/m2 40.10 kg/m2 eCW1 ([facility]) Heart rate 95 /min 95 /min eCW1 ([facility]) Respiratory rate 18 /min 18 /min eCW1 ([facility]) Body temperature 97.9 [degF] 97.9 [degF] eCW1 ( [facility]) Systolic blood pressure 130 mm[Hg] 130 mm[Hg] e CW1 ([facility]) Diastolic blood pressure 90 mm[Hg] 90 mm[Hg] eCW1 ([facility]) Systolic blood pressure 122 mm[Hg] 122 mm[Hg] e CW1 ([facility]) Body weight 239.6 [lb_av] 239.6 [lb_av] eCW1 ([facility] Body height 65 [in_i] 65 [in_i] eCW1 ([facility]) Body mass index (BMI) [Ratio] 39.87 kg/m2 39.87 kg/m2 eCW1 ([facility]) Diastolic blood pressure 84 mm[Hg] 84 mm[Hg] eCW1 ([facility]) Systolic blood pressure 143 mm[Hg] 143 mm[Hg] M EDENT ([facility], [facility]) Diastolic blood pressure 81 mm[Hg] 81 mm[Hg] MEDENT ([facility], [facility]) Heart rate 80 /min 80 /min MEDENT ([facility], [facility]) Respiratory rate 16 /min 16 /min MEDENT ( [facility], [facility]) Oxygen saturation in Arterial blood by Pulse oximetry 96 % 96 % MEDENT ([facility], [facility]) Body temperature 97.3 [degF] 97.3 [degF] MEDENT ([facility], [facility]) Body weight 230.00 [lb_av] 230.00 [lb_av] MEDEN T ([facility], [facility]) Body height 65 [in_i] 65 [in_i] MEDENT ([facility]) 5'5" Body mass index (BMI) [Ratio] 38.3 kg/m2 38.3 k g/m2 MEDENT ([facility], [facility]) Body weight 247 [lb_av] 247 [lb_av] eCW1 ([facility]) Body height 65 [in_i] 65 [in_i] eCW1 ([facility]) Body mass index (BMI) [Ratio] 41.10 kg/m2 41.10 kg/m2 eCW1 ([facility]) Heart rate 93 /min 93 /min eCW1 ([facility]) Respiratory rate 18 /min 18 /min eCW1 ([facility]) Body temperature 98.0 [degF] 98.0 [degF] eCW1 ( [facility]) Systolic blood pressure 110 mm[Hg] 110 mm[Hg] e CW1 ([facility]) Diastolic blood pressure 80 mm[Hg] 80 mm[Hg] eCW1 ([facility]) Body mass index (BMI) [Ratio] 38.3 kg/m2 38.3 k g/m2 [facility] ([facility]) Body weight 230.00 [lb_av] 230.00 [lb_av] MEDEN T ([facility]) Body temperature 97.1 [degF] 97.1 [degF] [facility] ([facility]) Body height 65 [in_i] 65 [in_i] [facility] ([facility]) 5'5" Body mass index (BMI) [Ratio] 38.3 kg/m2 38.3 k g/m2 MED[facility] ([facility], [facility]) Body height 65 [in_i] 65 [in_i] MED[facility] ([facility], [facility]) 5'5" Systolic blood pressure 127 mm[Hg] 127 mm[Hg] M EDENT ([facility], [facility]) Diastolic blood pressure 82 mm[Hg] 82 mm[Hg] MED[facility] ([facility]) Heart rate 65 /min 65 /min MEDENT ([facility], [facility]) Respiratory rate 20 /min 20 /min [employer] ( [facility]) Oxygen saturation in Arterial blood by Pulse oximetry 96 % 96 % MED[facility] ([facility]) Body temperature 98.4 [degF] 98.4 [degF] MEDENT ([facility], [facility]) Body weight 230.00 [lb_av] 230.00 [lb_av] MEDEN T ([facility]) Patient Treatment Plan of Care Planned Activity Planned Date Details Description Data Source (s) Fluoxetine 20 MG Oral Capsule 11/05/2020 12:00:00 AM EDT eCW1 ([facility]) Hydroxyzine Hydrochloride 10 MG Oral Tablet 11/05/2020 12:00:00 AM EDT eCW1 ([facility]) ferrous sulfate 325 MG Oral Tablet 10/01/2020 12:00:00 AM EDT eCW1 ([facility]) ferrous sulfate 325 MG Oral Tablet 10/01/2020 12:00:00 AM EDT eCW1 ([facility]) ferrous sulfate 325 MG Oral Tablet 10/01/2020 12:00:00 AM EDT eCW1 ([facility]) Fluconazole 150 MG Oral Tablet 05/19/2020 12:00:00 AM EDT eCW1 ([facility]) Amoxicillin 500 MG / Clavulanate 125 MG Oral Tablet [A ugmentin] 05/19/2020 12:00:00 AM EDT eCW1 ([facility]) tramadol hydrochloride 50 MG Oral Tablet 03/27/2020 12:00:00 AM EST eCW1 ([facility])
[2020-12-17] MEDS ORDERED: ONDANSETRON 4MG/2ML VIAL IV ONE (15:15)
[2020-12-17] MEDS ORDERED: KETOROLAC 30 MG/ML 1ML VIAL IV ONE (15:15)
[2020-12-17 16:01] LABS: BASO # 0.1 10^3/uL (0.0-0.2); EOS # 0.2 10^3/uL (0.0-0.5); EOS % 3.7 % (0.0-3.0); HEMATOCRIT 39.9 % (36.0-47.0); HEMOGLOBIN 11.9 g/dl (12.0-15.5); LYMPH # 1.8 10^3/uL (1.5-5.0); LYMPH % 34.7 % (24.0-44.0); MEAN CORPUSCULAR HEMOGLOBIN 22.2 pg (27.0-33.0); MEAN CORPUSCULAR HGB CONC 29.8 g/dl (32.0-36.5); MEAN CORPUSCULAR VOLUME 74.6 fl (80.0-96.0); MONO # 0.4 10^3/uL (0.0-0.8); MONO % 7.6 % (2.0-8.0); NEUTROPHILS # 2.7 10^3/uL (1.5-8.5); NEUTROPHILS % 52.6 % (36.0-66.0); PLATELET COUNT, AUTOMATED 331 10^3/uL (150-450); RED BLOOD COUNT 5.35 10^6/uL (4.00-5.40); WHITE BLOOD COUNT 5.1 10^3/uL (4.0-10.0)
--- NOTE | 2020-12-17 16:10 | REP ---
INDICATION: left shoulder pain, lifts a lot at work COMPARISON: None. TECHNIQUE: Three views left shoulder. The study is performed at 3:18 p.m.. The study is submitted for interpretation 4:02 p.m.. FINDINGS: There is no evidence of acute fracture, dislocation, or intrinsic bone disease.The joint spaces are unremarkable. Mild ill-defined calcification is seen in the region of the left axilla, which is nonspecific. IMPRESSION: Negative left shoulder series. <Electronically signed by Ethan May > 12/17/20 1985
--- OUTSIDE RECORDS SUMMARY | 2020-12-17 16:17 | CCD ---
Author Author [facility] Organization [facility] Address Unknown Phone Unavailable Care Team Providers Care Rim Technician Name Role Phone ISABEL, Nils KENDALL Unavailable [...] A PAVITHRA PA Unavailable Unavailable LETTIERE, A PAVITHAR PA Unavailable Unavailable LETTIERE, A PAVITHRA PA [...] Unavailable Unavailable MCELHERAN, PAVITHRA PA Unavailable Unavailable Alix Sousa RDH Unavailable Campanaro, Mare Vilma PA Unavailable Unavailable [...] is protected by Article 27-F of the [facility] Public Health law. If you continue you may have access to information: Regarding HIV / AIDS; Provided by facilities licensed or operated by the [facility] Office of Mental Health; or Provided by the [facility] Office for People With Developmental Disabilities. If such information is present, then the following [facility] mandated warning applies: This information has [...] law may result in a fine or skilled nursing sentence or both. A general authorization for the release of medical or other information is NOT sufficient authorization for further disc losure. 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 -NO Family History Family Member Name Family Member Gender Family Member Status Date o f Status Description Data Source(s) Unknown Unknown Problem MEDENT ([facility]) Unknown Female Encounters Encounter Providers Location Date Indications Data Source(s ) Unknown [address] [facility] [address] [place] [address] 11/06/2020 12:00:00 AM EDT eCW1 ([facility]) Unknown [address] [facility] [place] [address] 10/13/2020 12:00:00 AM EDT eCW1 ([facility]) Unknown [address] [facility] [address] [address] 10/01/2020 12:00:00 AM EDT eCW1 ([facility]) Outpatient [address] [facility] [address] [address] 09/30/2020 12:00:00 AM EDT eCW1 ([facility]) (WC 15ESGYN) 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</td><td>[facility]</td><td>07/24/2020</td><td>1:51PM</td><td>3:16PM</td><td></td>Outpatient Attender: Alix Sousa 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 [address] [place] [address] 06/30/2020 12:00:00 AM EDT eCW1 ([facility]) (WC 15ESGYN) 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 [address] [place] [address] 06/09/2020 12:00:00 AM EDT eCW1 ([facility]) Outpatient [address] [facility] [address] 05/19/2020 12:00:00 AM EDT eCW1 ([facility]) Unknown [address] [facility] [address] [address] 05/19/2020 12:00:00 AM EDT eCW1 ([facility]) Outpatient [address] [facility] [address] [address] 05/07/2020 12:00:00 AM EDT eCW1 ([facility]) OFFICE OUTPATIENT VISIT 15 MINUTES Attender: PAVITHRA KENDALL Physical Therapy 05/01/2020 07:15:00 AM EST MEDENT ([facility]) OFFICE OUTPATIENT VISIT 15 MINUTES Attender: PAVITHRA KENDALL Physical Therapy 04/17/2020 02:45:00 PM EST MEDENT ([facility]) Outpatient Attender: PAVITHRA rodriguez 04/13/2020 01:20:00 PM EST MEDENT ([facility]) Outpatient [address] [facility] [place] [address] 03/27/2020 12:00:00 AM EST eCW1 ([facility]) OFFICE OUTPATIENT VISIT 15 MINUTES Attender: PAVITHRA KENDALL Physical Therapy 03/05/2020 09:00:00 AM EST MEDENT ([facility]) Outpatient Attender: Vilma atkinsy 01/21/2020 04:40:00 PM EST MEDENT ([facility]) OFFICE OUTPATIENT VISIT 15 MINUTES Attender: GEORGE KENDALL Phys ical Therapy 11/16/2019 09:15:00 AM EDT MEDENT ([facility]) Immunizations Vaccine Date Status Description Data Source(s) COVID-19 VACCINE Mana 05/23/2020 12:00:00 AM EDT completed [facility] Vaccine Series Complete: YESThis Data wa s Submitted to [facility] Via [employer]. Influenza Virus Vaccine, Quadrivalent (Cciiv4), Derive d From Cell 01/20/2020 11:00:00 PM EST completed MEDENT ([facility]) Medications Medication Brand Name Start Date Product [...] EDT active hydrOXYzine HCl 10 MG eCW1 ([facility]) Fluoxetine 20 MG Oral Capsule FLUoxetine HCl 20 MG FLUoxetin e HCl 20 MG 11/05/2020 12:00:00 AM EDT 1.0 {capsule} active FLUoxetine HCl 20 MG eCW1 ([facility]) 325 mg (65 mg iron) 10/01/2020 12:00:00 AM EDT tablet 30 TAKE ONE TABLET BY MOUTH EVERY DAY TAKE ONE TABLET BY MOUTH EVERY DAY SOLD: 10/02/2020 [facility] ferrous sulfate 325 MG Oral Tablet Ferrous Sulfate 325 (65 Fe) MG Ferrous Sulfate 325 (65 Fe) MG 10/01/2020 12:00:00 AM EDT 1.0 {tablet} active Ferrous Sulfate 325 (65 Fe) MG eCW1 ([facility]) ferrous sulfate 325 MG Oral Tablet Ferrous Sulfate 325 (65 Fe) MG Ferrous Sulfate 325 (65 Fe) MG 10/01/2020 12:00:00 AM EDT 1.0 {tablet} active Ferrous Sulfate 325 (65 Fe) MG eCW1 ([facility]) ferrous sulfate 325 MG Oral Tablet Ferrous Sulfate 325 (65 Fe) MG Ferrous Sulfate 325 (65 Fe) MG 10/01/2020 12:00:00 AM EDT 1.0 {tablet} active Ferrous Sulfate 325 (65 Fe) MG eCW1 ([facility]) 2 % 08/03/2020 12:00:00 AM EDT [...] DAILY DOSE = 3 TABLETS SOLD: 06/14/2020 [facility] 600 mg 06/14/2020 12:00:00 AM EDT [...] 1.0 {tablet} active Fluconazole 150 MG eCW1 ([facility]) 500-125 mg 05/19/2020 12:00:00 AM EDT tablet 21 TAKE ONE TABLET BY MOUTH EVERY 8 HOURS FOR 7 DAYS TAKE ONE TABLET BY MOUTH EVERY 8 HOURS FOR 7 DAYS SOLD : 05/19/2020 [facility] 150 mg 05/19/2020 12:00:00 AM EDT tablet 2 TAKE ONE TABLET BY MOUTH EVERY 72 HOUR TAKE ONE TABLET BY MOUTH EVERY 72 HOUR SOLD: 05/19/2020 [facility] Amoxicillin 500 MG / Clavulanate 125 MG Oral Tablet [Augmentin] Augmentin 500- 125 MG Augmentin 500-125 MG 05/19/2020 12:00:00 AM EDT 1.0 {tablet} active Augmentin 500-125 MG eCW1 ([facility]) tizanidine 4 MG Oral Tablet TIZANIDINE HCL 05/01/2020 12:00:00 AM EST tablet 30 TAKE ONE - TWO TABLETS BY MOUTH AT BEDTIME TAKE ONE - TWO TABLETS BY MOUTH AT BEDTIME SOLD: 05/02/2020 [facility] tizanidine 4 MG Oral Tablet Tizanidine HCL 05/01/2020 12:00:00 AM EST active MEDENT ([facility]) Amoxicillin 875 MG Oral Tablet Amoxicillin 04/13/2020 12:00:00 AM EST active MEDENT ([facility]) 875 mg 04/13/2020 12:00:00 AM EST tablet [...] {tablet_as_needed} suspended traMADol HCl 50 MG eCW1 ([facility]) tramadol hydrochloride 50 MG Oral Tablet Tramadol HCl 50 MG Tramadol HCl 50 MG 03/27/2020 12:00:00 AM EST 1.0 {tablet_as_needed} active Tramadol HCl 50 MG eCW1 ([facility]) tramadol hydrochloride 50 MG Oral Tablet Tramadol HCl 50 MG Tramadol HCl 50 MG 03/27/2020 12:00:00 AM EST 1.0 {tablet_as_needed} active Tramadol HCl 50 MG eCW1 ([facility]) tramadol hydrochloride 50 MG Oral Tablet Tramadol HCl 50 MG Tramadol HCl 50 MG 03/27/2020 12:00:00 AM EST 1.0 {tablet_as_needed} active Tramadol HCl 50 MG eCW1 ([facility]) tramadol hydrochloride 50 MG Oral Tablet traMADol HCl 50 MG traMADol HCl 50 MG 03/27/2020 12:00:00 AM EST 1.0 {tablet_as_needed} suspended traMADol HCl 50 MG eCW1 ([facility]) tramadol hydrochloride 50 MG Oral Tablet traMADol HCl 50 MG traMADol HCl 50 MG 03/27/2020 12:00:00 AM EST 1.0 {tablet_as_needed} suspended traMADol HCl 50 MG eCW1 ([facility]) tramadol hydrochloride 50 MG Oral Tablet traMADol HCl 50 MG traMADol HCl 50 MG 03/27/2020 12:00:00 AM EST 1.0 {tablet_as_needed} suspended traMADol HCl 50 MG eCW1 ([facility]) tramadol hydrochloride 50 MG Oral Tablet Tramadol HCl 50 MG Tramadol HCl 50 MG 03/27/2020 12:00:00 AM EST 1.0 {tablet_as_needed} active Tramadol HCl 50 MG eCW1 ([facility]) tramadol hydrochloride 50 MG Oral Tablet traMADol HCl 50 MG traMADol HCl 50 MG 03/27/2020 12:00:00 AM EST 1.0 {tablet_as_needed} suspended traMADol HCl 50 MG eCW1 ([facility]) tramadol hydrochloride 50 MG Oral Tablet Tramadol HCl 50 MG Tramadol HCl 50 MG 03/27/2020 12:00:00 AM EST 1.0 {tablet_as_needed} active Tramadol HCl 50 MG eCW1 ([facility]) tramadol hydrochloride 50 MG Oral Tablet Tramadol HCl 50 MG Tramadol HCl 50 MG 03/27/2020 12:00:00 AM EST 1.0 {tablet_as_needed} active Tramadol HCl 50 MG eCW1 ([facility]) tramadol hydrochloride 50 MG Oral Tablet Tramadol HCl 50 MG Tramadol HCl 50 MG 03/27/2020 12:00:00 AM EST 1.0 {tablet_as_needed} active Tramadol HCl 50 MG eCW1 ([facility]) 20 mg 03/15/2020 12:00:00 AM EST capsule 30 TAKE ONE CAPSULE BY MOUTH EVERY DAY DIRECTED TAKE ONE CAPSULE BY MOUTH EVERY DAY DIRECTED SOLD: 03/18/2020 [facility] Lidocaine Hydrochloride 40 MG/ML Topical Cream Aspercreme W/ Lidocaine 01/21/2020 12:00:00 AM EST completed MEDENT ([facility]) meloxicam 7.5 MG Oral Tablet [Mobic] Mobic 10/05/2019 12:00:00 AM EDT ORAL completed MEDENT ([facility]) Cyclobenzaprine hydrochloride 10 MG Oral Tablet Cyclobenzapr ine HCL 09/28/2019 12:00:00 AM EDT completed MEDENT ([facility]) Insurance Providers Payer name Policy type / Coverage type Policy ID Covered republican ID Covered republican's relationship to ruiz Policy Ruiz Plan Information [employer] [facility] [place] [id number] SP [id number] [facility] [id number] SP [id number] PROGRESSIVE CO NO FAULT [id number] SP [id number] [facility] O [id number] S [id number] [facility] [id number] SP [id number] [facility] Commercial [id number] Self [id number] [facility] Commercial [id number] Self [id number] [facility] O [id number] S [id number] MEDICAID M [id number] S [id number] SELF PAY SP [facility] [id number] SP [id number] MEDICAID [id number] SP [id number] [facility] [id number] SP [id number] [facility] Commercial [id number] Self SELF PAY 5 UNAVAILABLE 1 UNAVAILA BLE [facility] [id number] SP [id number] Problems, Conditions, and Diagnoses Code Display Name Description Problem Type Effective Dates Data Source(s) F41.9 [id number] Anxiety Problem 11/05/2020 12:00:00 AM ED T eCW1 ([facility]) F32.9 [id number] Major depressive dis order, remission status unspecified, unspecified whether recurrent Problem 11/05/2020 12:00:00 AM EDT eCW 1 ([facility]) D50.9 [id number] Iron deficiency anemia, unspecif ied iron deficiency anemia type Problem 10/01/2020 12:00:00 AM EDT eCW1 ([facility]) E66.9 [id number] Obesity (BMI 30-39.9) Problem 09/30/2020 12: 00:00 AM EDT eCW1 ([facility]) D50.9 [id number] Microcytic anemia Problem 03/28/2020 12:00:0 0 AM EST eCW1 ([facility]) M17.12 [id number] Primary osteoarthritis of left knee Pr oblem 03/27/2020 12:00:00 AM EST eCW1 ([facility]) Z68.41 [id number] Body mass index [BMI]40.0-44.9, adult Pro blem 03/27/2020 12:00:00 AM EST eCW1 ([facility]) E66.01 [id number] Morbid (severe) obesity due to excess c alories Problem 03/27/2020 12:00:00 AM EST eCW1 ([facility]) Surgeries/Procedures Procedure Description Date Indications Data Source(s) Clinical summary transmitted to yasmin anguiano provider electronically with reasonable certainty of receipt or receiving provider [facility] 07/24/2020 12:00:00 AM EDT - 07/24/2020 12:00:00 AM EDT JENNIFFER ([facility]) Transition in care medication list update 07/24/2020 12:00:00 AM EDT - 07/24/2020 12:00:00 AM EDT JENNIFFER ([facility]) Nutritional Counseling Nutritional Counseling 07/24/2020 12:00:00 A M EDT JENNIFFER ([facility]) Oral Hygiene/[facility] Oral Hygiene/[facility] 07/24/2020 12:00:00 AM EDT JENNIFFER ([facility]) Periodontal Charting Periodontal Charting 07/24/2020 12:00:00 AM ED T JENNIFFER ([facility]) Prophylaxis Adult Prophylaxis Adult 07/24/2020 12:00:00 AM EDT JENNIFFER ([facility]) Periodic Oral Evaluation Periodic Oral Evaluation 07/24/2020 12:00: 00 AM EDT JENNIFFER ([facility]) Oral Cancer Screening Oral Cancer Screening 07/24/2020 12:00:00 AM EDT JENNIFFER ([facility]) MRI Lower Extremity Any Joint 04/24/2020 12:00:[address] MEDENT ([facility] ARTHROCENTESIS ASPIR&/INJECTION MAJOR JT/BURSA 021 12:00:00 AM EST MEDENT ([facility]) THERAPEUTIC PX 1/> AREAS EACH 15 MIN EXERCISES 12:00:00 AM EDT MEDENT ([facility]) MANUAL THERAPY TQS 1/> REGIONS EACH 15 MINUTES 12:00:00 AM EDT MEDENT ([facility]) THERAPEUTIC PX 1/> AREAS EACH 15 MIN EXERCISES 12:00:00 AM EDT MEDENT ([facility]) MANUAL THERAPY TQS 1/> REGIONS EACH 15 MINUTES 12:00:00 AM EDT MEDENT ([facility]) THERAPEUTIC PX 1/> AREAS EACH 15 MIN EXERCISES 12:00:00 AM EDT MEDENT ([facility]) MANUAL THERAPY TQS 1/> REGIONS EACH 15 MINUTES 12:00:00 AM EDT MEDENT ([facility]) THERAPEUTIC PX 1/> AREAS EACH 15 MIN EXERCISES 12:00:00 AM EDT MEDENT ([facility]) MANUAL THERAPY TQS 1/> REGIONS EACH 15 MINUTES 12:00:00 AM EDT MEDENT ([facility]) THERAPEUTIC PX 1/> AREAS EACH 15 MIN EXERCISES 12:00:00 AM EDT MEDENT ([facility]) MANUAL THERAPY TQS 1/> REGIONS EACH 15 MINUTES 12:00:00 AM EDT MEDENT ([facility]) Results ID Date Data Source TOTAL IRON BINDING CAPACIT 09/30/2020 12:00:00 AM EDT eCW1 ( [facility]) Name Value Range Interpretation Code Description Data Karol rce(s) Supporting Document(s) 485 250-450 TOTAL IRON BINDING CAPACI TY eCW1 ([facility]) 19 50-170 IRON (FE) eCW1 ([facility]) 3.9 13.2-45.0 PERCENT SATURATION eCW1 ([facility]) ID Date Data Source FERRITIN 09/30/2020 12:00:00 AM EDT eCW1 ([facility]) Name Value Range Interpretation Code Description Data Karol rce(s) Supporting Document(s) 7 8-252 FERRITIN eCW1 ([facility]) ID Date Data Source CBC with Differential 09/30/2020 12:00:00 AM EDT eCW1 ([facility]) Name Value Range Interpretation Code Description Data Karol rce(s) Supporting Document(s) 4.83 4.00-5.40 RED BLOOD COUNT eCW1 ([facility]) 5.3 4.0-10.0 WHITE BLOOD COUNT eCW1 ([facility]) 73.1 80.0-96.0 MEAN CORPUSCULAR VOLUME e CW1 ([facility]) 10.3 12.0-15.5 HEMOGLOBIN eCW1 ([facility]) 35.3 36.0-47.0 HEMATOCRIT eCW1 ([facility]) 21.3 27.0-33.0 MEAN CORPUSCULAR HEMOGLOB IN eCW1 ([facility]) 29.2 32.0-36.5 MEAN CORPUSCULAR HGB CONC eCW1 ([facility]) 19.3 11.5-14.5 RED CELL DISTRIBUTION WID TH eCW1 ([facility]) 347 150-450 PLATELET COUNT, AUTOMATED eCW1 ([facility]) 9.6 2.0-8.0 MONO % eCW1 ([facility]) 31.3 24.0-44.0 LYMPH % eCW1 ([facility]) 53.2 36.0-66.0 NEUTROPHILS % eCW1 ([facility]) 0.8 0.0-1.0 BASO % eCW1 ([facility]) 4.3 0.0-3.0 EOS % eCW1 ([facility]) 2.8 1.5-8.5 NEUTROPHILS # eCW1 ([facility]) 0.2 0.0-0.5 EOS # eCW1 ([facility]) 1.7 1.5-5.0 LYMPH # eCW1 ([facility]) 0.5 0.0-0.8 MONO # eCW1 ([facility]) 0.0 0.0-0.2 BASO # eCW1 ([facility]) ID Date Data Source [id number] 06/19/2020 01:43:00 AM EDT MEDENT ([facility]) Name Value Range Interpretation Code Description Data Karol rce(s) Supporting Document(s) Laboratory test finding (navigational concept) Laboratory test result MEDENT ([facility]) Laboratory test finding (navigational concept) Laboratory test result MEDENT ([facility]) Laboratory test finding (navigational concept) 6.0 units 5.0-9.0 MEDENT ([facility], [facility]) Laboratory test finding (navigational concept) 1.019 1.002-1.035 MEDENT ([facility]) Laboratory test finding (navigational concept) Laboratory test result MEDENT ([facility]) Laboratory test finding (navigational concept) Laboratory test result MEDENT ([facility], [facility]) Laboratory test finding (navigational concept) Laboratory test result MEDENT ([facility], [facility]) Laboratory test finding (navigational concept) 0.2 mg/dL 0.0-2.0 MEDENT ([facility]) Laboratory test finding (navigational concept) Laboratory test result MEDENT ([facility], [facility]) Laboratory test finding (navigational concept) Laboratory test result MEDENT ([facility]) Laboratory test finding (navigational concept) Laboratory test result MEDENT [facility] Laboratory test finding (navigational concept) 1 /HPF 0-3 MEDENT ([facility]) Laboratory test finding (navigational concept) Laboratory test result MEDENT ([facility]) Laboratory test finding (navigational concept) 1 /HPF 0-3 MEDENT ([facility]) Laboratory test finding (navigational concept) Laboratory test result MEDENT ([facility]) Laboratory test finding (navigational concept) 7 /HPF 0-6 MEDENT ([facility]) Laboratory test finding (navigational concept) 0 /LPF 0-1 MEDENT ([facility]) Laboratory test finding (navigational concept) Laboratory test result [facility] ([facility]) ID Date Data Source [id number] 06/19/2020 01:43:00 AM EDT MEDENT ([facility]) Name Value Range Interpretation Code Description Data Karol rce(s) Supporting Document(s) Laboratory test finding (navigational concept) Laboratory test result MEDENT ([facility]) Reference Interval: Negative for Clue Ce lls, Trichomonas vaginalis or Yeast like organisms. WET PREP RESULT MANY EPITHELIAL CELLS PRESENT MANY RBC MODERATE WBC FEW SHORT RODS PRESENT FEW LONG RODS PRESENT ID Date Data Source [id number] 06/19/2020 12:05:00 AM EDT MEDENT ([facility]) Name Value Range Interpretation Code Description Data Karol rce(s) Supporting Document(s) AB Screen (Indirect Edelmira)Vis Laboratory test result MEDENT ([facility]) Blood Type Laboratory test result MEDENT ([facility]) ID Date Data Source [id number] 06/08/2020 11:55:00 AM EDT [facility] Name Value Range Interpretation Code Description Data Karol rce(s) Supporting Document(s) SARS-CoV-2 (COVID-19) RNA [Presence] in Respiratory specimen by JAMES with probe detection Not Detected [facility] This lab was ordered by [facility] and reported by [employer] ID Date Data Source [id number] 04/13/2020 12:00:00 AM EST [facility] Name Value Range Interpretation Code Description Data Karol rce(s) Supporting Document(s) SARS-CoV2 Rapid Antigen Negative [facility] This lab was reported by [facility]. ID Date Data Source LIPID PANEL (CARDIAC RISK) 03/27/2020 12:00:00 AM EST eCW1 ( [facility]) Name Value Range Interpretation Code Description Data Karol rce(s) Supporting Document(s) Triglyceride [Mass/volume] in Serum or Plasma by calculation 22 <150 TRIGLYCERIDES LEVEL eCW1 ([facility]) Cholesterol [Moles/volume] in Serum or Plasma 125 <200 CHOLESTEROL LEVEL eCW1 ([facility]) Cholesterol in HDL [Moles/volume] in Serum or Plasma 94 >40 HDL CHOLESTEROL eCW1 ([facility]) Cholesterol in LDL [Mass/volume] in Serum or Plasma by calculation 27 <100 LDL CHOLESTEROL eCW1 ([facility]) 1.329 <5 CHOLESTEROL RISK RATIO eCW1 ([facility]) 31 NON-HDL-C eCW1 ([facility]) ID Date Data Source [id number] 03/27/2020 12:00:00 AM EST eCW1 ([facility]) Name Value Range Interpretation Code Description Data Karol rce(s) Supporting Document(s) Hemoglobin A1c/Hemoglobin.total in Blood 5.7 HEMOGLOBIN A1c eCW1 ([facility]) ID Date Data Source Comprehensive Metabolic Profile (CMP) 03/27/2020 12:00:00 AM EST eCW1 ([facility]) Name Value Range Interpretation Code Description Data Karol rce(s) Supporting Document(s) 18 7-18 BLOOD UREA NITROGEN eCW1 ([facility]) 93 70-100 GLUCOSE, FASTING eCW1 ([facility]) > 60.0 >58 GLOMERULAR FILTRATION RATE eCW 1 ([facility]) 0.77 0.55-1.30 CREATININE FOR GFR eCW1 ([facility]) 4.2 3.5-5.1 POTASSIUM SERUM eCW1 ([facility]) 142 136-145 SODIUM LEVEL eCW1 ([facility]) 25 21-32 CARBON DIOXIDE LEVEL eCW1 ([facility]) 108 98-107 CHLORIDE LEVEL eCW1 ([facility]) 8.9 8.5-10.1 CALCIUM LEVEL eCW1 ([facility]) 24 7-37 AST/SGOT eCW1 ([facility]) 32 12-78 ALT/SGPT eCW1 ([facility]) 55 45-117 ALKALINE PHOSPHATASE eCW1 ([facility]) 1.3 1.2-2.2 ALBUMIN/GLOBULIN RATIO eCW1 ([facility]) 3.6 3.2-5.2 ALBUMIN eCW1 ([facility]) 1.0 0.2-1.0 BILIRUBIN,TOTAL eCW1 ([facility]) 6.4 6.4-8.2 TOTAL PROTEIN eCW1 ([facility]) ID Date Data Source [id number] 03/05/2020 11:25:00 AM EST MEDENT ([facility]) Name Value Range Interpretation Code Description Data Karol rce(s) Supporting Document(s) Lyme Disease IgM Ab Quantitati Laboratory test result 0.00-0.79 MEDENT ([facility]) <content>Negative <0.80</content >
<content>Equivocal 0.80 - 1.19</content>
<content>Positive >1.19</content>
<content>.</content>
<content>IgM levels may peak at 3-6 weeks post infection, then</content>
<content>gradually decline.</content>
<content></content> Lyme Disease IgG/IgM Antibodie Laboratory test result 0.00-0.90 [facility] [facility] <content>Negative <0.91</content >
<content>Equivocal 0.91 - 1.09</content>
<content>Positive >1.09</content>
<content></content> ID Date Data Source [id number] 03/05/2020 11:25:00 AM EST MEDENT ([facility]) Name Value Range Interpretation Code Description Data Karol rce(s) Supporting Document(s) Erythrocyte sedimentation rate by Westergren method 8 mm/hr 0-20 MEDENT ([facility]) C reactive protein [Mass/volume] in Serum or Plasma by High sensitivity method 0.43 mg/dL 0.00-0.30 [facility] ([facility]) ID Date Data Source [id number] 03/05/2020 11:25:00 AM EST MEDENT ([facility]) Name Value Range Interpretation Code Description Data Karol rce(s) Supporting Document(s) Antinuclear Antibodies Direct Laboratory test result MEDENT ([facility]) Performed at: RN - [facility] [address] [id number] Policy Advisor: Emily Rodriguez MD, Phone: [phone] ID Date Data Source [id number] 03/05/2020 11:25:00 AM EST MEDENT ([facility]) Name Value Range Interpretation Code Description Data Karol rce(s) Supporting Document(s) Rheumatoid factor [Units/volume] in Serum or Plasma Laboratory test result MEDENT ([facility]) Urate [Mass/volume] in Serum or Plasma 2.9 mg/dL 2.6-6.0 MEDENT ([facility]) Procedure Social History Code Duration Value Status Description Data Source(s ) Smoking 11/05/2020 12:00:00 AM EDT Never Smoker completed Never S moker eCW1 ([facility]) Smoking 09/30/2020 12:00:00 AM EDT Never Smoker completed Never S moker eCW1 ([facility]) Smoking 09/30/2020 12:00:00 AM EDT Never Smoker completed Never S moker eCW1 ([facility]) Smoking 09/30/2020 12:00:00 AM EDT Never Smoker completed Never S moker eCW1 ([facility]) Smoking 08/06/2020 12:00:00 AM EDT Never Smoker completed Never S moker eCW1 ([facility]) Smoking 07/04/2020 12:00:00 AM EDT Never Smoker completed Never S moker eCW1 ([facility]) Smoking 06/30/2020 12:00:00 AM EDT Never Smoker completed Never S moker eCW1 ([facility]) Smoking 06/09/2020 12:00:00 AM EDT Never Smoker completed Never S moker eCW1 ([facility]) Smoking 06/09/2020 12:00:00 AM EDT Never Smoker completed Never S moker eCW1 ([facility]) Smoking 05/19/2020 12:00:00 AM EDT Never Smoker completed Never S moker eCW1 ([facility]) Smoking 05/07/2020 12:00:00 AM EDT Never Smoker completed Never S moker eCW1 ([facility]) Smoking 03/27/2020 12:00:00 AM EST Never Smoker completed Never S moker eCW1 ([facility]) Vital Signs ID Date Data Source UNK Name Value Range Interpretation Code Description Data Source(s) Body weight 250.0 [lb_av] 250.0 [lb_av] eCW1 ([facility]) Body weight 113.4 kg 113.4 kg eCW1 ([facility]) Body height 65 [in_i] 65 [in_i] eCW1 ([facility]) Body mass index (BMI) [Ratio] 41.60 kg/m2 41.60 kg/m2 eCW1 ([facility]) Heart rate 86 /min 86 /min eCW1 ([facility]) Respiratory rate 18 /min 18 /min eCW1 ([facility]) Body temperature 98.1 [degF] 98.1 [degF] eCW1 ( [facility]) Systolic blood pressure 126 mm[Hg] 126 mm[Hg] e CW1 ([facility]) Diastolic blood pressure 84 mm[Hg] 84 mm[Hg] eCW1 ([facility]) Body height 65 [in_i] 65 [in_i] eCW1 ([facility]) Body weight 243.6 [lb_av] 243.6 [lb_av] eCW1 ([facility]) Body weight 110.5 kg 110.5 kg eCW1 ([facility]) Body mass index (BMI) [Ratio] 40.53 kg/m2 40.53 kg/m2 eCW1 ([facility]) Systolic blood pressure 134 mm[Hg] 134 mm[Hg] e CW1 ([facility]) Diastolic blood pressure 80 mm[Hg] 80 mm[Hg] eCW1 ([facility]) Body weight 246.2 [lb_av] 246.2 [lb_av] eCW1 ([facility]) Body height 65 [in_i] 65 [in_i] eCW1 ([facility]) Body mass index (BMI) [Ratio] 40.97 kg/m2 40.97 kg/m2 eCW1 ([facility]) Systolic blood pressure 130 mm[Hg] 130 mm[Hg] e CW1 ([facility]) Diastolic blood pressure 80 mm[Hg] 80 mm[Hg] eCW1 ([facility]) Body weight 245.6 [lb_av] 245.6 [lb_av] eCW1 ([facility]) Body height 65 [in_i] 65 [in_i] eCW1 ([facility]) Body mass index (BMI) [Ratio] 40.87 kg/m2 40.87 kg/m2 eCW1 ([facility]) Systolic blood pressure 130 mm[Hg] 130 mm[Hg] e CW1 ([facility]) Diastolic blood pressure 80 mm[Hg] 80 mm[Hg] eCW1 ([facility]) Body weight 245 [lb_av] 245 [lb_av] eCW1 ([facility]) Body mass index (BMI) [Ratio] 40.77 kg/m2 40.77 kg/m2 eCW1 ([facility]) Systolic blood pressure 130 mm[Hg] 130 mm[Hg] e CW1 ([facility]) Body height 65 [in_i] 65 [in_i] eCW1 ([facility]) Diastolic blood pressure 82 mm[Hg] 82 mm[Hg] eCW1 ([facility]) Body mass index (BMI) [Ratio] 39.8 kg/m2 39.8 k g/m2 MEDENT ([facility], ) Body height 65 [in_i] 65 [in_i] MEDENT ([facility], ) 5'5" Raymond body weight 125 [lb_av] 125 [lb_av] MEDEN T ([facility], ) Body weight 108.410 kg 108.410 kg [facility] Body surface area Derived from formula 2.13 m2 2.13 m2 MEDENT ([facility]) Body weight 239.00 [lb_av] 239.00 [lb_av] MEDEN T ([facility]) Body weight 241 [lb_av] 241 [lb_av] eCW1 ([facility]) Body height 65 [in_i] 65 [in_i] eCW1 ([facility]) Body mass index (BMI) [Ratio] 40.10 kg/m2 40.10 kg/m2 eCW1 ([facility]) Heart rate 95 /min 95 /min eCW1 ([facility]) Respiratory rate 18 /min 18 /min eCW1 ([facility]) Body temperature 97.9 [degF] 97.9 [degF] eCW1 ( [facility]) Systolic blood pressure 130 mm[Hg] 130 mm[Hg] e CW1 ([facility]) Diastolic blood pressure 90 mm[Hg] 90 mm[Hg] eCW1 ([facility]) Systolic blood pressure 122 mm[Hg] 122 mm[Hg] e CW1 ([facility]) Body weight 239.6 [lb_av] 239.6 [lb_av] eCW1 ([facility]) Body height 65 [in_i] 65 [in_i] eCW1 ([facility]) Body mass index (BMI) [Ratio] 39.87 kg/m2 39.87 kg/m2 eCW1 ([facility]) Diastolic blood pressure 84 mm[Hg] 84 mm[Hg] eCW1 ([facility]) Systolic blood pressure 143 mm[Hg] 143 mm[Hg] M EDENT ([facility]) Diastolic blood pressure 81 mm[Hg] 81 mm[Hg] MED[facility] Heart rate 80 /min 80 /min MEDENT ([facility], [facility]) Body mass index (BMI) [Ratio] 38.3 kg/m2 38.3 k g/m2 MEDENT ([facility], [facility]) Respiratory rate 16 /min 16 /min MEDENT ( [facility]) Oxygen saturation in Arterial blood by Pulse oximetry 96 % 96 % MEDENT ([facility], [facility]) Body temperature 97.3 [degF] 97.3 [degF] MEDENT ([facility]) Body weight 230.00 [lb_av] 230.00 [lb_av] MEDEN T ([facility], [facility]) Body height 65 [in_i] 65 [in_i] MEDENT ([facility], [facility]) 5'5" Body weight 247 [lb_av] 247 [lb_av] eCW1 ([facility]) Body height 65 [in_i] 65 [in_i] eCW1 ([facility]) Body mass index (BMI) [Ratio] 41.10 kg/m2 41.10 kg/m2 W1 ([facility]) Heart rate 93 /min 93 /min eCW1 ([facility]) Respiratory rate 18 /min 18 /min eCW1 ([facility]) Body temperature 98.0 [degF] 98.0 [degF] eCW1 ( [facility]) Systolic blood pressure 110 mm[Hg] 110 mm[Hg] e CW1 ([facility]) Diastolic blood pressure 80 mm[Hg] 80 mm[Hg] eCW1 ([facility]) Body mass index (BMI) [Ratio] 38.3 kg/m2 38.3 k g/m2 [facility] ([facility] Body weight 230.00 [lb_av] 230.00 [lb_av] MEDEN T ([facility] ) Body temperature 97.1 [degF] 97.1 [degF] MEDENT ([facility]) Body height 65 [in_i] 65 [in_i] MEDENT ([facility] 5'5" Body mass index (BMI) [Ratio] 38.3 kg/m2 38.3 k g/m2 MEDENT ([facility], [facility]) Systolic blood pressure 127 mm[Hg] 127 mm[Hg] M EDENT ([facility], [facility]) Diastolic blood pressure 82 mm[Hg] 82 mm[Hg] MEDENT ([facility]) Heart rate 65 /min 65 /min MEDENT ([facility], [facility]) Respiratory rate 20 /min 20 /min [facility] ( [facility]) Oxygen saturation in Arterial blood by Pulse oximetry 96 % 96 % MEDENT ([facility]) Body height 65 [in_i] 65 [in_i] MEDENT ([facility], [facility]) 5'5" Body temperature 98.4 [degF] 98.4 [degF] MEDENT ([facility]) Body weight 230.00 [lb_av] 230.00 [lb_av] MEDEN T ([facility]) Patient Treatment Plan of Care Planned Activity Planned Date Details Description Data Source (s) Fluoxetine 20 MG Oral Capsule 11/05/2020 12:00:00 AM EDT eCW1 ([facility]) Hydroxyzine Hydrochloride 10 MG Oral Tablet 11/05/2020 12:00:00 AM EDT eCW1 ([facility]) ferrous sulfate 325 MG Oral Tablet 10/01/2020 12:00:00 AM EDT eCW1 ([facility]) ferrous sulfate 325 MG Oral Tablet 10/01/2020 12:00:00 AM EDT eCW1 ([facility]) ferrous sulfate 325 MG Oral Tablet 10/01/2020 12:00:00 AM EDT eCW1 ([facility]) Fluconazole 150 MG Oral Tablet 05/19/2020 12:00:00 AM EDT eCW1 ([facility]) Amoxicillin 500 MG / Clavulanate 125 MG Oral Tablet [A ugmentin] 05/19/2020 12:00:00 AM EDT eCW1 ([facility]) tramadol hydrochloride 50 MG Oral Tablet 03/27/2020 12:00:00 AM EST eCW1 ([facility])
[2020-12-17 16:26] LABS: ALBUMIN 3.7 GM/DL (3.2-5.2); ALT/SGPT 30 U/L (12-78); BLOOD UREA NITROGEN 11 MG/DL (7-18); CALCIUM LEVEL 9.2 MG/DL (8.5-10.1); CARBON DIOXIDE LEVEL 30 MEQ/L (21-32); CHLORIDE LEVEL 107 MEQ/L (98-107); CREATININE FOR GFR 0.86 MG/DL (0.55-1.30); GLOMERULAR FILTRATION RATE > 60.0 (>58); GLUCOSE, FASTING 94 MG/DL (70-100); POTASSIUM SERUM 4.4 MEQ/L (3.5-5.1); SODIUM LEVEL 138 MEQ/L (136-145); TOTAL PROTEIN 7.1 GM/DL (6.4-8.2)
[2020-12-17 17:07] VITALS: BP 148/94
== END 2020-12-17 17:27 | disposition home or self-care (01) ==
LOC: M ED 12:16
DX: G43.909 Migraine, unspecified, not intractable, without status migrainosus (principal); S43.402A Unspecified sprain of left shoulder joint, initial encounter; X58.XXXA Exposure to other specified factors, initial encounter; Y92.89 Other specified places as the place of occurrence of the external cause; F33.9 Major depressive disorder, recurrent, unspecified; D64.9 Anemia, unspecified; F41.9 Anxiety disorder, unspecified; Z79.899 Other long term (current) drug therapy
CPT/HCPCS: 73030; 80053; 85025; 96374; 96375; 99284; J1885; J2405

== ENCOUNTER → 2020-12-25 | Outpatient (CLI) | payer OTHER ==
[~2020-12-25] MED LIST changes: +FERR325T19; +FLUO20CA22
[2020-12-25 16:02] LABS: HEMATOCRIT 38.9 % (36.0-47.0); HEMOGLOBIN 11.6 g/dl (12.0-15.5); MEAN CORPUSCULAR HEMOGLOBIN 22.1 pg (27.0-33.0); MEAN CORPUSCULAR HGB CONC 29.8 g/dl (32.0-36.5); MEAN CORPUSCULAR VOLUME 74.1 fl (80.0-96.0); PLATELET COUNT, AUTOMATED 263 10^3/uL (150-450); RED BLOOD COUNT 5.25 10^6/uL (4.00-5.40); WHITE BLOOD COUNT 5.9 10^3/uL (4.0-10.0)
[2020-12-25 16:31] LABS: PERCENT SATURATION 5.7 % (13.2-45.0)
== END ==
LOC: M WUC 10:43
PROVIDERS: ATTEND Student in an Organized Health Care Education/Training Program
DX: D50.9 Iron deficiency anemia, unspecified (principal)

== ENCOUNTER → 2021-04-03 | Outpatient (CLI) | payer OTHER ==
[~2021-04-03] MED LIST changes: -CEFD1CAP8; +CEFD300C41; +PRIL20TA2 PO; +SUMA25TA3; +TIZA10TA; -TIZA4TAB4
== END ==
LOC: M LABSMTC 11:25
PROVIDERS: ATTEND Anesthesiology
DX: Z01.812 Encounter for preprocedural laboratory examination (principal); Z20.822 Contact with and (suspected) exposure to COVID-19

== ENCOUNTER 2021-04-08 06:16 | Day surgery (SDC) | payer OTHER ==
[~2021-04-08] VITALS: Ht 165.1 cm; Wt 107.0 kg
[~2021-04-08 06:16] MED LIST changes: +LR 1,000 ML IV ONE
[2021-04-08] MEDS ORDERED: ceFAZolin SOD 2 GM in IV 1 EA IV ONE (06:30)
[2021-04-08] MEDS ORDERED: fentaNYL 100 MCG/2 ML INJECTION As Ordered ONE (06:57)
[2021-04-08] MEDS ORDERED: MIDAZOLAM INJ 2MG/2ML VIAL (J2250 PER 1MG) As Ordered ONE (06:57)
[2021-04-08] MEDS ORDERED: propofoL 200 MG/20 ML VIAL As Ordered ONE (06:57)
[2021-04-08] MEDS ORDERED: LIDOCAINE 2% 100MG/5ML SDV (FOR ANES.) As Ordered ONE (06:58)
[2021-04-08] MEDS ORDERED: propofoL 500 MG/50 ML VIAL As Ordered ONE (07:15)
[2021-04-08] MEDS ORDERED: ACETAMINOPHEN 1000MG 100ML IV BTL (OFIRMEV) (J0131 PER 10MG) As Ordered ONE (07:52)
[2021-04-08] MEDS ORDERED: BUPIVACAINE HCL 0.5% 10ML VIAL As Ordered ONE (07:53)
[2021-04-08] MEDS ORDERED: dexameTHASONE 4 MG/ML 1ML VIAL (J1100 PER 1MG) As Ordered ONE ×2 (07:53→08:11)
[2021-04-08] MEDS ORDERED: LIDOCAINE 1% MDV 20ML VIAL As Ordered ONE (07:53)
[2021-04-08] MEDS ORDERED: ePHEDrine SULFATE 25 MG/5 ML(5MG/ML) SYRINGE As Ordered ONE (08:00)
[2021-04-08] MEDS ORDERED: ONDANSETRON 4MG/2ML VIAL As Ordered ONE (08:11)
[2021-04-08] MEDS ORDERED: HYDR-3713 PO (09:53)
[2021-04-08] MEDS ORDERED: ONDANSETRON 4MG/2ML VIAL IV PRN (10:10)
[2021-04-08] MEDS ORDERED: oxyCODONE 5MG TAB PO PRN (10:10)
[2021-04-08] MEDS ORDERED: LR 1,000 ML IV SCH (10:10)
[2021-04-08] MEDS ORDERED: HYDROMORPHONE HCL 0.5 MG/ 0.5 ML SYRINGE (J1170 PER 1) IV PRN (10:10)
[2021-04-08] MEDS ORDERED: fentaNYL 100 MCG/2 ML INJECTION IV PRN (10:10)
[2021-04-08] MEDS ORDERED: METOCLOPRAMIDE INJ 10MG/2ML VIAL (J2765 PER 1) As Ordered ONE (10:39)
[2021-04-08] MEDS ORDERED: METOCLOPRAMIDE INJ 10MG/2ML VIAL (J2765 PER 1) IV PRN (10:40)
[2021-04-08] MEDS ORDERED: diphenhydrAMINE 50MG/ML VIAL (J1200) IV PRN (10:40)
[2021-04-08 11:17] VITALS: BP 124/68
[2021-04-09] MEDS ORDERED: SUMA25TA3 (13:41)
== END 2021-04-08 12:32 | disposition home or self-care (01) ==
LOC: M SDC 06:16
PROVIDERS: ATTEND Podiatrist Foot & Ankle Surgery
DX: M21.611 Bunion of right foot (principal); M20.11 Hallux valgus (acquired), right foot; M20.41 Other hammer toe(s) (acquired), right foot; D64.9 Anemia, unspecified; K21.9 Gastro-esophageal reflux disease without esophagitis; L40.9 Psoriasis, unspecified; F41.9 Anxiety disorder, unspecified; F32.9 Major depressive disorder, single episode, unspecified; F43.10 Post-traumatic stress disorder, unspecified; J32.9 Chronic sinusitis, unspecified; Z79.899 Other long term (current) drug therapy
CPT/HCPCS: 28285; 28297; 88300; C1713; J0131; J0690; J1100; J2250; J2405; J2765; J3010

== ENCOUNTER 2021-04-09 13:00 | Emergency (ER) | payer OTHER ==
[~2021-04-09] VITALS: Ht 165.1 cm; Wt 104.5 kg
[~2021-04-09 13:00] MED LIST changes: +HYDR-3713 PO; -LR 1,000 ML IV ONE
[2021-04-09] MEDS ORDERED: SUMA25TA3 (13:41)
[2021-04-09] MEDS ORDERED: PERCOCET 5MG/325MG TAB PO ONE (18:05)
[2021-04-09 18:21] VITALS: BP 164/91
== END 2021-04-09 18:34 | disposition home or self-care (01) ==
LOC: M ED 13:00
DX: M79.671 Pain in right foot (principal); G89.18 Other acute postprocedural pain; K21.9 Gastro-esophageal reflux disease without esophagitis; J30.2 Other seasonal allergic rhinitis; G43.909 Migraine, unspecified, not intractable, without status migrainosus; Z79.899 Other long term (current) drug therapy

== ENCOUNTER 2021-04-10 11:53 | Emergency (ER) | payer OTHER ==
[~2021-04-10] VITALS: Ht 165.1 cm; Wt 104.5 kg
[2021-04-10 12:18] VITALS: BP 143/91
[2021-04-10] MEDS ORDERED: PERCOCET 5MG/325MG TAB PO ONE (14:20)
== END 2021-04-10 14:59 | disposition home or self-care (01) ==
LOC: EDBD 11:53 → M ED 11:53
DX: S80.01XA Contusion of right knee, initial encounter (principal); W00.0XXA Fall on same level due to ice and snow, initial encounter; Y92.89 Other specified places as the place of occurrence of the external cause; M25.571 Pain in right ankle and joints of right foot; I10 Essential (primary) hypertension; G47.33 Obstructive sleep apnea (adult) (pediatric); Z79.899 Other long term (current) drug therapy

== ENCOUNTER 2021-06-18 10:00 | Outpatient (RCR) | payer OTHER | END 2021-06-20 | LOC: M PT 10:00 | PROVIDERS: ATTEND Podiatrist Foot & Ankle Surgery | DX: Z98.890 Other specified postprocedural states (principal) ==

== ENCOUNTER 2021-07-01 12:55 | Outpatient (RCR) | payer OTHER ==
[~2021-07-01 12:55] MED LIST changes: -AFRI0.058; +OXYM15SP2
== END 2021-07-21 ==
LOC: M PT 12:55
PROVIDERS: ATTEND Podiatrist Foot & Ankle Surgery
DX: Z98.890 Other specified postprocedural states (principal)

== ENCOUNTER → 2021-07-14 | Outpatient (CLI) | payer OTHER | LOC: M WHC 07:28 | PROVIDERS: ATTEND Student in an Organized Health Care Education/Training Program | DX: N63.0 Unspecified lump in unspecified breast (principal); Z80.3 Family history of malignant neoplasm of breast | CPT/HCPCS: 77066; G0279 ==

== ENCOUNTER 2021-10-07 12:48 | Emergency (ER) | payer OTHER ==
[~2021-10-07] VITALS: Ht 165.1 cm; Wt 104.5 kg
[2021-10-07] MEDS ORDERED: KETOROLAC 30 MG/ML 1ML VIAL IV ONE (14:20)
[2021-10-07] MEDS ORDERED: METOCLOPRAMIDE INJ 10MG/2ML VIAL (J2765 PER 1) IV ONE (14:20)
[2021-10-07] MEDS ORDERED: NS 1,000 ML IV ONE (14:20)
[2021-10-07 15:45] LABS: BASO # 0.1 10^3/uL (0.0-0.2); BASO % 1.1 % (0.0-1.0); EOS # 0.3 10^3/uL (0.0-0.5); EOS % 6.2 % (0.0-3.0); HEMATOCRIT 40.4 % (36.0-47.0); HEMOGLOBIN 12.6 g/dl (12.0-15.5); LYMPH # 1.6 10^3/uL (1.5-5.0); LYMPH % 36.1 % (24.0-44.0); MEAN CORPUSCULAR HEMOGLOBIN 25.6 pg (27.0-33.0); MEAN CORPUSCULAR HGB CONC 31.2 g/dl (32.0-36.5); MEAN CORPUSCULAR VOLUME 82.1 fl (80.0-96.0); MONO # 0.4 10^3/uL (0.0-0.8); MONO % 8.1 % (2.0-8.0); NEUTROPHILS # 2.2 10^3/uL (1.5-8.5); NEUTROPHILS % 48.1 % (36.0-66.0); PLATELET COUNT, AUTOMATED 254 10^3/uL (150-450); RED BLOOD COUNT 4.92 10^6/uL (4.00-5.40); WHITE BLOOD COUNT 4.5 10^3/uL (4.0-10.0)
[2021-10-07 16:19] LABS: BLOOD UREA NITROGEN 16 MG/DL (7-18); CALCIUM LEVEL 8.7 MG/DL (8.5-10.1); CARBON DIOXIDE LEVEL 28 MEQ/L (21-32); CHLORIDE LEVEL 110 MEQ/L (98-107); CREATININE FOR GFR 0.75 MG/DL (0.55-1.30); GLOMERULAR FILTRATION RATE > 60.0 (>58); GLUCOSE, FASTING 85 MG/DL (70-100); LIPASE 77 U/L (73-393); POTASSIUM SERUM 3.8 MEQ/L (3.5-5.1); SODIUM LEVEL 140 MEQ/L (136-145)
[2021-10-07 16:26] LABS: ALBUMIN 3.4 GM/DL (3.2-5.2); BILIRUBIN,DIRECT 0.3 MG/DL (0.0-0.2); BILIRUBIN,TOTAL 0.7 MG/DL (0.2-1.0); TOTAL PROTEIN 6.4 GM/DL (6.4-8.2)
[2021-10-07 18:13] LABS: APPEARANCE, URINE MANUAL CLEAR (CLEAR); COLOR, URINE MANUAL YELLOW (YELLOW)
[2021-10-07 18:14] LABS: BILIRUBIN, URINE MANUAL NEGATIVE (NEGATIVE); BLOOD URINE MANUAL NEGATIVE (NEGATIVE); GLUCOSE, URINE (UA) MANUAL NEGATIVE (NEGATIVE); KETONE, URINE MANUAL NEGATIVE (NEGATIVE); LEUKOCYTE ESTERASE, URINE MAN NEGATIVE (NEGATIVE); NITRITE, URINE MANUAL NEGATIVE (NEGATIVE); PROTEIN, URINE MANUAL NEGATIVE (NEGATIVE); UROBILINOGEN, URINE MANUAL NORMAL (NORMAL)
[2021-10-07 20:21] VITALS: BP 144/89
== END 2021-10-07 20:21 | disposition home or self-care (01) ==
LOC: M ED 12:48
DX: G43.909 Migraine, unspecified, not intractable, without status migrainosus (principal); R03.0 Elevated blood-pressure reading, without diagnosis of hypertension
CPT/HCPCS: 36415; 70450; 71046; 73080; 80047; 80048; 81002; 82248; 83690; 85025; 87486; 87581; 87633; 87798; 93005; 96361; 96374; 96375; 99284; J1885; J2765

== ENCOUNTER 2021-10-13 14:20 | Emergency (ER) | payer OTHER ==
[~2021-10-13] VITALS: Ht 165.1 cm; Wt 104.4 kg
[2021-10-13] MEDS ORDERED: METOCLOPRAMIDE INJ 10MG/2ML VIAL (J2765 PER 1) IV ONE (15:15)
[2021-10-13] MEDS ORDERED: KETOROLAC 30 MG/ML 1ML VIAL IV ONE (15:15)
[2021-10-13 15:52] LABS: HEMATOCRIT 40.2 % (36.0-47.0); HEMOGLOBIN 12.8 g/dl (12.0-15.5); MEAN CORPUSCULAR HEMOGLOBIN 26.3 pg (27.0-33.0); MEAN CORPUSCULAR HGB CONC 31.8 g/dl (32.0-36.5); MEAN CORPUSCULAR VOLUME 82.7 fl (80.0-96.0); PLATELET COUNT, AUTOMATED 267 10^3/uL (150-450); RED BLOOD COUNT 4.86 10^6/uL (4.00-5.40); WHITE BLOOD COUNT 5.9 10^3/uL (4.0-10.0)
[2021-10-13 16:13] LABS: MB/CK RELATIVE INDEX 1.92 (< OR =4)
[2021-10-13 16:33] LABS: BLOOD UREA NITROGEN 14 MG/DL (7-18); CALCIUM LEVEL 9.3 MG/DL (8.5-10.1); CARBON DIOXIDE LEVEL 25 MEQ/L (21-32); CHLORIDE LEVEL 108 MEQ/L (98-107); CREATININE FOR GFR 0.75 MG/DL (0.55-1.30); GLOMERULAR FILTRATION RATE > 60.0 (>58); GLUCOSE, FASTING 88 MG/DL (70-100); POTASSIUM SERUM 4.3 MEQ/L (3.5-5.1); SODIUM LEVEL 139 MEQ/L (136-145)
[2021-10-13] MEDS ORDERED: VALSARTAN 80 MG TAB (DIOVAN) PO ONE (17:45)
[2021-10-13] MEDS ORDERED: CHLORTHALIDONE 12.5MG PER 1/2 TABLET PO ONE (17:45)
[2021-10-13 18:03] VITALS: BP 178/104
[2021-10-13] MEDS ORDERED: CHLO125TA PO (19:19)
[2021-10-13] MEDS ORDERED: VALS1TAB67 PO (19:19)
[2021-10-13 20:00] VITALS: BP 147/94
== END 2021-10-13 20:33 | disposition home or self-care (01) ==
LOC: EDBD 14:20 → M ED 15:27
DX: R55 Syncope and collapse (principal); I10 Essential (primary) hypertension; F32.A Depression, unspecified; F41.9 Anxiety disorder, unspecified; Z91.51 Personal history of suicidal behavior; Z79.899 Other long term (current) drug therapy
CPT/HCPCS: 80048; 82550; 82553; 85027; 93005; 96374; 96375; 99285; J1885; J2765

== ENCOUNTER → 2021-10-15 | Outpatient (CLI) | payer OTHER ==
[~2021-10-15] MED LIST changes: +CHLO125TA PO; +VALS1TAB67 PO
[2021-10-15 08:13] LABS: HEMATOCRIT 42.6 % (36.0-47.0); HEMOGLOBIN 13.6 g/dl (12.0-15.5); MEAN CORPUSCULAR HEMOGLOBIN 25.9 pg (27.0-33.0); MEAN CORPUSCULAR HGB CONC 31.9 g/dl (32.0-36.5); PLATELET COUNT, AUTOMATED 279 10^3/uL (150-450); RED BLOOD COUNT 5.26 10^6/uL (4.00-5.40); WHITE BLOOD COUNT 5.5 10^3/uL (4.0-10.0)
[2021-10-15 08:53] LABS: PERCENT SATURATION 11.4 % (13.2-45.0)
== END ==
LOC: M LAB 07:17
PROVIDERS: ATTEND Student in an Organized Health Care Education/Training Program
DX: D50.9 Iron deficiency anemia, unspecified (principal)

== ENCOUNTER → 2021-11-02 | Outpatient (CLI) | payer OTHER ==
[2021-11-02 13:07] LABS: BLOOD UREA NITROGEN 21 MG/DL (7-18); CALCIUM LEVEL 9.5 MG/DL (8.5-10.1); CARBON DIOXIDE LEVEL 26 MEQ/L (21-32); CHLORIDE LEVEL 105 MEQ/L (98-107); CREATININE FOR GFR 0.83 MG/DL (0.55-1.30); GLOMERULAR FILTRATION RATE > 60.0 (>58); GLUCOSE, FASTING 92 MG/DL (70-100); POTASSIUM SERUM 3.9 MEQ/L (3.5-5.1); SODIUM LEVEL 137 MEQ/L (136-145)
[2021-11-02 15:17] LABS: MALB URINE SIEMENS 14.4 MG/L; MAU/CREAT RATIO 7.5 MCG/MG (0.0-30.0)
== END ==
LOC: M LAB 10:51
PROVIDERS: ATTEND Internal Medicine Cardiovascular Disease
DX: R23.2 Flushing (principal); I10 Essential (primary) hypertension

== ENCOUNTER → 2021-11-03 | Outpatient (REF) | payer OTHER | LOC: M LAB REF 13:29 | PROVIDERS: ATTEND Internal Medicine Cardiovascular Disease | DX: Z53.9 Procedure and treatment not carried out, unspecified reason (principal) ==

== ENCOUNTER → 2021-11-04 | Outpatient (REF) | payer OTHER | LOC: M LAB REF 13:27 | PROVIDERS: ATTEND Internal Medicine Cardiovascular Disease | DX: R23.2 Flushing (principal) ==

== ENCOUNTER → 2021-11-17 | Outpatient (CLI) | payer OTHER ==
[2021-11-17 14:41] LABS: BLOOD UREA NITROGEN 22 MG/DL (7-18); CALCIUM LEVEL 9.1 MG/DL (8.5-10.1); CARBON DIOXIDE LEVEL 26 MEQ/L (21-32); CHLORIDE LEVEL 106 MEQ/L (98-107); CREATININE FOR GFR 0.92 MG/DL (0.55-1.30); GLOMERULAR FILTRATION RATE > 60.0 (>58); GLUCOSE, FASTING 96 MG/DL (70-100); SODIUM LEVEL 139 MEQ/L (136-145)
== END ==
LOC: M LAB 12:13
PROVIDERS: ATTEND Student in an Organized Health Care Education/Training Program
DX: I10 Essential (primary) hypertension (principal)

== ENCOUNTER → 2021-12-28 | Outpatient (CLI) | payer OTHER ==
[~2021-12-28] MED LIST changes: +VALS1TAB66 PO
== END ==
LOC: M LABSMTC 10:09
PROVIDERS: ATTEND Anesthesiology
DX: Z01.812 Encounter for preprocedural laboratory examination (principal); Z11.52 Encounter for screening for COVID-19

== ENCOUNTER 2021-12-31 11:58 | Day surgery (SDC) | payer OTHER ==
[~2021-12-31] VITALS: Ht 165.1 cm; Wt 104.3 kg
[~2021-12-31 11:58] MED LIST changes: +NS 1,000 ML IV ONE
[2021-12-31] MEDS ORDERED: CLAR10CA3 PO (12:55)
[2021-12-31] MEDS ORDERED: LIDOCAINE 2% 100MG/5ML SDV (FOR ANES.) As Ordered ONE (13:04)
[2021-12-31] MEDS ORDERED: propofoL 200 MG/20 ML VIAL As Ordered ONE (13:04)
[2021-12-31] MEDS ORDERED: fentaNYL 100 MCG/2 ML INJECTION As Ordered ONE (13:04)
[2021-12-31] MEDS ORDERED: ONDANSETRON 4MG 2ML VIAL As Ordered ONE (13:56)
[2021-12-31] MEDS ORDERED: ONDANSETRON 4MG 2ML VIAL IV ONE (14:00)
[2021-12-31 14:24] VITALS: BP 136/85
== END 2021-12-31 14:26 | disposition home or self-care (01) ==
LOC: M OPP 11:58
PROVIDERS: ATTEND Surgery
DX: Z12.11 Encounter for screening for malignant neoplasm of colon (principal); Z80.0 Family history of malignant neoplasm of digestive organs; K57.30 Diverticulosis of large intestine without perforation or abscess without bleeding; K31.89 Other diseases of stomach and duodenum; K29.70 Gastritis, unspecified, without bleeding; D50.9 Iron deficiency anemia, unspecified; K30 Functional dyspepsia; Z79.899 Other long term (current) drug therapy; F32.9 Major depressive disorder, single episode, unspecified; F41.9 Anxiety disorder, unspecified; F43.10 Post-traumatic stress disorder, unspecified
CPT/HCPCS: 43239; 45378; 88305; J2405; J3010

== ENCOUNTER → 2022-03-09 | Outpatient (CLI) | payer OTHER ==
[~2022-03-09] MED LIST changes: +FLON1SPR; -NS 1,000 ML IV ONE
[2022-03-09 18:02] LABS: BASO % 0.6 % (0.0-1.0); EOS # 0.4 10^3/uL (0.0-0.5); EOS % 6.1 % (0.0-3.0); HEMATOCRIT 45.2 % (36.0-47.0); LYMPH # 1.9 10^3/uL (1.5-5.0); LYMPH % 30.9 % (24.0-44.0); MEAN CORPUSCULAR HEMOGLOBIN 26.1 pg (27.0-33.0); MEAN CORPUSCULAR VOLUME 84.2 fl (80.0-96.0); MONO # 0.5 10^3/uL (0.0-0.8); MONO % 8.7 % (2.0-8.0); NEUTROPHILS # 3.3 10^3/uL (1.5-8.5); NEUTROPHILS % 53.2 % (36.0-66.0); PLATELET COUNT, AUTOMATED 248 10^3/uL (150-450); RED BLOOD COUNT 5.37 10^6/uL (4.00-5.40); WHITE BLOOD COUNT 6.2 10^3/uL (4.0-10.0)
[2022-03-09 18:23] LABS: PERCENT SATURATION 17.4 % (13.2-45.0)
[2022-03-09 18:26] LABS: FERRITIN 19.5 NG/ML (7.3-270.7)
== END ==
LOC: M PLALAB 13:47
PROVIDERS: ATTEND Student in an Organized Health Care Education/Training Program
DX: D50.9 Iron deficiency anemia, unspecified (principal); M79.644 Pain in right finger(s)

== ENCOUNTER → 2022-03-21 | Outpatient (CLI) | payer OTHER | LOC: M LABSMTC 11:19 | PROVIDERS: ATTEND Anesthesiology | DX: Z01.812 Encounter for preprocedural laboratory examination (principal); Z11.52 Encounter for screening for COVID-19 ==

== ENCOUNTER 2022-03-24 09:24 | Day surgery (SDC) | payer OTHER ==
[~2022-03-24] VITALS: Ht 165.1 cm; Wt 111.7 kg
[~2022-03-24 09:24] MED LIST changes: +BUPIVACAINE HCL 0.5% 30ML VIAL As Ordered ONE; +LIDO15SO4 PO; -LIDO2SOL17 PO; +LIDOCAINE 1% MDV 20ML VIAL As Ordered ONE; +ceFAZolin SOD 2 GM in IV 1 EA IV ONE
[2022-03-24] MEDS ORDERED: LR 1,000 ML IV SCH (09:40)
[2022-03-24] MEDS ORDERED: propofoL 200 MG/20 ML VIAL As Ordered ONE (10:30)
[2022-03-24] MEDS ORDERED: ACETAMINOPHEN 1000MG 100ML IV BAG As Ordered ONE (10:30)
[2022-03-24] MEDS ORDERED: LIDOCAINE 2% 100MG/5ML SDV (FOR ANES.) As Ordered ONE (10:30)
[2022-03-24] MEDS ORDERED: ONDANSETRON 4MG 2ML VIAL As Ordered ONE (10:30)
[2022-03-24] MEDS ORDERED: fentaNYL 100 MCG/2 ML INJECTION As Ordered ONE (10:31)
[2022-03-24] MEDS ORDERED: MIDAZOLAM INJ 2MG/2ML VIAL As Ordered ONE (10:31)
[2022-03-24 13:00] VITALS: BP 125/66
== END 2022-03-24 13:05 | disposition home or self-care (01) ==
LOC: M SDC 09:24
PROVIDERS: ATTEND Podiatrist Foot & Ankle Surgery
DX: T84.84XA Pain due to internal orthopedic prosthetic devices, implants and grafts, initial encounter (principal); Y79.2 Prosthetic and other implants, materials and accessory orthopedic devices associated with adverse incidents; I10 Essential (primary) hypertension; K21.9 Gastro-esophageal reflux disease without esophagitis; D64.9 Anemia, unspecified; F41.9 Anxiety disorder, unspecified; F32.A Depression, unspecified; Z79.899 Other long term (current) drug therapy
CPT/HCPCS: 20680; J1100; J2405

== ENCOUNTER → 2022-04-06 | Outpatient (CLI) | payer OTHER ==
[~2022-04-06] MED LIST changes: -BUPIVACAINE HCL 0.5% 30ML VIAL As Ordered ONE; -LIDOCAINE 1% MDV 20ML VIAL As Ordered ONE; -ceFAZolin SOD 2 GM in IV 1 EA IV ONE
== END ==
LOC: M PLALAB 13:44
PROVIDERS: ATTEND Student in an Organized Health Care Education/Training Program
DX: R89.9 Unspecified abnormal finding in specimens from other organs, systems and tissues (principal)

== ENCOUNTER → 2022-04-14 | Outpatient (CLI) | payer OTHER ==
[2022-04-14 16:02] LABS: APPEARANCE, URINE CLEAR (CLEAR); BACTERIA, URINE AUTO 1+ (NEGATIVE); BILIRUBIN, URINE AUTO NEGATIVE (NEGATIVE); BLOOD, URINE BLOOD NEGATIVE (NEGATIVE); COLOR, URINE YELLOW (YELLOW); GLUCOSE, URINE (UA) AUTO NEGATIVE (NEGATIVE); KETONE, URINE AUTO NEGATIVE (NEGATIVE); LEUKOCYTE ESTERASE, URINE AUTO NEGATIVE (NEGATIVE); MUCUS, URINE SMALL (NEGATIVE); NITRITE, URINE AUTO NEGATIVE (NEGATIVE); PROTEIN, URINE AUTO NEGATIVE (NEGATIVE); RBC, URINE AUTO 0 /HPF (0-3); SPECIFIC GRAVITY URINE AUTO 1.013 (1.002-1.035); SQUAMOUS EPITHELIAL CELL UR AU 1 /HPF (0-6); UROBILINOGEN, URINE AUTO 0.2 mg/dL (0.0-2.0); WBC, URINE AUTO 2 /HPF (0-3)
[2022-04-14 16:10] LABS: COMPLEMENT C3 123.6 MG/DL (90.0-170.0); COMPLEMENT C4 27.5 MG/DL (12-36)
[2022-04-14 16:37] LABS: CREATININE,RANDOM URINE 67.2 MG/DL
[2022-04-14 16:44] LABS: TOTAL PROTEIN,RANDOM URINE < 6.0 MG/DL (0.0-14.0)
== END ==
LOC: M PLALAB 12:37
PROVIDERS: ATTEND Student in an Organized Health Care Education/Training Program
DX: R76.8 Other specified abnormal immunological findings in serum (principal)

== ENCOUNTER 2022-09-24 07:13 | Emergency (ER) | payer OTHER ==
[~2022-09-24] VITALS: Ht 165.1 cm; Wt 116.5 kg
[~2022-09-24 07:13] MED LIST changes: +LIDO15SO PO; -LIDO15SO4 PO
[2022-09-24 07:15] VITALS: BP 146/85; TEMP 97.6; O2SAT 96
== END 2022-09-24 08:53 | disposition home or self-care (01) ==
LOC: M ED 07:13
DX: S50.01XA Contusion of right elbow, initial encounter (principal); W22.8XXA Striking against or struck by other objects, initial encounter; Y92.89 Other specified places as the place of occurrence of the external cause; Y93.89 Activity, other specified; Y99.0 Civilian activity done for income or pay; I10 Essential (primary) hypertension; F32.A Depression, unspecified; F41.9 Anxiety disorder, unspecified; Z79.899 Other long term (current) drug therapy

== ENCOUNTER → 2022-10-04 | Outpatient (CLI) | payer OTHER | LOC: M SOG 10:54 | PROVIDERS: ATTEND Physician Assistant | DX: M25.521 Pain in right elbow (principal) ==

== ENCOUNTER 2024-02-12 05:17 | Emergency (ER) | payer OTHER ==
[~2024-02-12] VITALS: Ht 165.1 cm; Wt 113.6 kg
[~2024-02-12 05:17] MED LIST changes: +CEFD1CAP9; -CEFD300C41; +DOXY-441 PO; -DOXY-443 PO; +FLUO-365; +FLUO-365 PO; -FLUO20CA22; -FLUO20CA22 PO; -LIDO15SO PO; +LIDO15SO8 PO; +MECL-209 PO; -MECL1TAB31 PO
[2024-02-12 06:34] VITALS: BP 158/96; TEMP 98.4; O2SAT 97
[2024-02-13] MEDS ORDERED: ONDA-282 PO (09:19)
== END 2024-02-12 07:12 | disposition home or self-care (01) ==
LOC: M ED 05:17
DX: J09.X2 Influenza due to identified novel influenza A virus with other respiratory manifestations (principal); I10 Essential (primary) hypertension; Z79.899 Other long term (current) drug therapy

== ENCOUNTER 2024-02-13 07:10 | Emergency (ER) | payer OTHER ==
[~2024-02-13] VITALS: Ht 165.1 cm; Wt 111.4 kg
[2024-02-13] MEDS: ONDANSETRON 4MG ORAL DISINTEGRATING TAB PO ONE (07:54)
[2024-02-13] MEDS: KETOROLAC 60MG 2ML VIAL IM ONE (07:55)
[2024-02-13] MEDS ORDERED: ONDA-282 PO (09:19)
[2024-02-13 09:36] VITALS: BP 158/94; TEMP 98.5; O2SAT 98
== END 2024-02-13 09:41 | disposition home or self-care (01) ==
LOC: M ED 07:10
DX: J09.X2 Influenza due to identified novel influenza A virus with other respiratory manifestations (principal); I10 Essential (primary) hypertension; F17.200 Nicotine dependence, unspecified, uncomplicated; Z79.899 Other long term (current) drug therapy
CPT/HCPCS: 96372; 99283; J1885

== ENCOUNTER → 2024-05-08 | Outpatient (CLI) | payer OTHER ==
[~2024-05-08] MED LIST changes: +ONDA-282 PO
[2024-05-08 07:20] LABS: ALBUMIN 3.6 G/DL (3.2-5.2); ALKALINE PHOSPHATASE 64 U/L (35-104); ALT/SGPT 24 U/L (7.0-40); AST/SGOT 16 U/L (<34); BILIRUBIN,TOTAL 1.2 MG/DL (0.3-1.2); BLOOD UREA NITROGEN 24 MG/DL (9-23); CARBON DIOXIDE LEVEL 27 MMOL/L (20-31); CHLORIDE LEVEL 108 MMOL/L (98-107); CHOLESTEROL LEVEL 118 MG/DL (<200); CHOLESTEROL RISK RATIO 1.65 (<5); CREATININE FOR GFR 0.73 MG/DL (0.55-1.30); GLOMERULAR FILTRATION RATE > 60.0 (>58); GLUCOSE, FASTING 93 MG/DL (60-100); HDL CHOLESTEROL 71.3 MG/DL (>40); LDL CHOLESTEROL 38.9 MG/DL (<100); NON-HDL-C 46.7 MG/DL; POTASSIUM SERUM 3.9 MMOL/L (3.5-5.1); SODIUM LEVEL 143 MMOL/L (136-145); TOTAL PROTEIN 6.5 G/DL (5.7-8.2); TRIGLYCERIDES LEVEL 39 MG/DL (<150)
== END ==
LOC: M LAB 06:11
PROVIDERS: ATTEND Physician Assistant
DX: I10 Essential (primary) hypertension (principal)

== ENCOUNTER → 2024-06-26 | Outpatient (CLI) | payer OTHER | LOC: M PLAIMG 12:18 | PROVIDERS: ATTEND Physician Assistant | DX: R94.31 Abnormal electrocardiogram [ECG] [EKG] (principal); I10 Essential (primary) hypertension ==

== ENCOUNTER 2024-10-18 23:01 | Emergency (ER) | payer OTHER ==
[~2024-10-18] VITALS: Ht 165.1 cm; Wt 90.9 kg
[~2024-10-18 23:01] MED LIST changes: -IBUP-1022 PO; +IBUP600T42 PO
[2024-10-18 23:46] LABS: PLATELET COUNT, AUTOMATED 236 10^3/uL (150-450)
[2024-10-19 00:06] LABS: AMPHETAMINES LEVEL URINE NEGATIVE (NEGATIVE); BARBITURATES URINE NEGATIVE (NEGATIVE); BENZODIAZEPINES URINE NEGATIVE (NEGATIVE); COCAINE METABOLITE URINE NEGATIVE (NEGATIVE)
[2024-10-19 00:07] LABS: CANNABINOIDS URINE NEGATIVE (NEGATIVE); METHADONE URINE NEGATIVE (NEGATIVE); OPIATES URINE NEGATIVE (NEGATIVE); PHENCYCLIDINE URINE NEGATIVE (NEGATIVE)
[2024-10-19 00:09] LABS: ETHYL ALCOHOL (ETHANOL) 0.132 % (0.000-0.010); SALICYLATE LEVEL < 3.0 MG/DL (<30)
[2024-10-19 00:10] LABS: ALT/SGPT 31 U/L (7.0-40); AST/SGOT 26 U/L (<34); CALCIUM LEVEL 9.3 MG/DL (8.5-10.1); CARBON DIOXIDE LEVEL 22 MMOL/L (20-31); CHLORIDE LEVEL 109 MMOL/L (98-107); CREATININE FOR GFR 0.74 MG/DL (0.55-1.30); GLOMERULAR FILTRATION RATE > 90.0 (>51); POTASSIUM SERUM 3.7 MMOL/L (3.5-5.1); SODIUM LEVEL 144 MMOL/L (136-145)
[2024-10-19 00:11] LABS: HCG, SERUM QUALITATIVE NEGATIVE (NEGATIVE)
[2024-10-19] MEDS ORDERED: SPIR-10 (00:20)
[2024-10-19] MEDS ORDERED: VALS1TAB67 (00:20)
[2024-10-19 07:32] VITALS: BP 133/76; TEMP 98.6; O2SAT 99
== END 2024-10-19 07:45 | disposition home or self-care (01) ==
LOC: M ED 23:01
DX: F10.129 Alcohol abuse with intoxication, unspecified (principal); F32.A Depression, unspecified; Z79.899 Other long term (current) drug therapy